=== PATIENT | female | born 1995 | race Caucasian/White ===

== ENCOUNTER → 2020-07-26 08:54 | Outpatient (BNVA) | payer BC, SELFPAY | PROVIDERS: PCP Nurse Practitioner Family; Visit Provider Surgery | DX: Z76.89 Persons encountering health services in other specified circumstances (principal) ==

== ENCOUNTER → 2020-08-10 08:14 | Outpatient (BNVA) | payer BC, SELFPAY | PROVIDERS: PCP Nurse Practitioner Family; Visit Provider Surgery | DX: Z76.89 Persons encountering health services in other specified circumstances (principal) ==

== ENCOUNTER → 2020-08-25 08:11 | Outpatient (BNVA) | payer BC, SELFPAY | PROVIDERS: PCP Nurse Practitioner Family; Visit Provider Dietitian, Registered ==

== ENCOUNTER 2023-06-11 08:24 | Emergency (ER) | payer OTHER, SELFPAY ==
--- NOTE | ~2023-06-11 | XR_ITS ---
EXAMINATION: XR ANKLE, RIGHT XR FOOT, RIGHT CLINICAL INFORMATION: Status post fall. COMPARISON: None. TECHNIQUE: AP and oblique views of the right ankle were obtained. AP, lateral and oblique views of the right foot were obtained. FINDINGS: No displaced fracture or malalignment. Ankle mortise is symmetric. Bone mineralization is normal. Joint spaces are preserved. No evidence of talar osteochondral lesion. No ankle joint effusion. XR/XR foot RT 2V IMPRESSION: No acute abnormality.
--- NOTE | ~2023-06-11 | XR_ITS ---
EXAMINATION: XR ANKLE, RIGHT XR FOOT, RIGHT CLINICAL INFORMATION: Status post fall. COMPARISON: None. TECHNIQUE: AP and oblique views of the right ankle were obtained. AP, lateral and oblique views of the right foot were obtained. FINDINGS: No displaced fracture or malalignment. Ankle mortise is symmetric. Bone mineralization is normal. Joint spaces are preserved. No evidence of talar osteochondral lesion. No ankle joint effusion. XR/XR ankle RT 2V IMPRESSION: No acute abnormality.
[2023-06-11 08:34] VITALS: BP 127/73; PULSE 84; RESP 18; TEMP 36; O2SAT 96; BMI 44.3
--- NOTE | 2023-06-11 08:48 | PC.NURSE ---
pt currently in xray.
[2023-06-11 09:03] VITALS: BP 132/57; PULSE 76; RESP 16; TEMP 36.7; O2SAT 98
--- NOTE | 2023-06-11 09:05 | PC.NURSE ---
vss and up to date. pt comes in today d/t fall this am. pt was coming out of house, went down one step/tripped/fell down 5 steps. pt denies feeling lightheaded/dizzy prior to fall. pt denies numbness/tingling - just 7/10 pain in right ankle/foot. cms intact. peripheral pulses palpable. pt awaiting for provider assessment/xray results.
--- NOTE | 2023-06-11 09:08 | ED_ITS ---
HPI - Extremity Injury (Lower) General Chief Complaint: Extremity Injury, Lower Stated Complaint: fall 06/10, R ankle injury Time Seen by Provider: 06/11/23 09:08 Source: patient, RN notes reviewed and old records reviewed Mode of arrival: ambulatory History of Present Illness HPI Narrative: 27 yo F w/PMHx depression, anxiety, IBS presenting to the ED c/o R ankle and foot pain s/p twisting injury after slipping down 3-4 stairs this morning when leaving her house. Denies sx prior to fall, denies head trauma or LOC, or injury to other area. Was minimally ambulatory after incident, with pain. Denies weakness, numbness MD complaint: ankle injury and foot injury Related Data Home Medications Medication Instructions Recorded Confirmed cholecalciferol (vitamin D3) 50 50 mcg PO DAILY 07/26/20 07/26/20 mcg (2,000 unit) capsule cranberry-vit cap PO 07/26/20 07/26/20 C-B.coag-FOS-L.acid-L.rham 250 mg-30 mg-39.5 mg capsule (Probiotic Plus and Cranberry) fluticasone propionate 50 1 spray intranasal DAILY 07/26/20 07/26/20 mcg/actuation nasal spray,suspension hyoscyamine sulfate 0.375 mg 0.375 mg PO BID 07/26/20 07/26/20 tablet,extended release,12 hr levonorgestrel 0.15 mg-ethinyl PO 07/26/20 07/26/20 estradiol 30 mcg tablets,3 mos pack(91) multivitamin 1 tab PO DAILY 07/26/20 07/26/20 Allergies Allergy/AdvReac Type Severity Reaction Status Date / Time No Known Allergies Allergy Verified 07/26/20 09:58 Review of Systems Review of Systems: Constitutional: No Weight loss, No Fever, No Chills ENT/Mouth: No Ear Pain, No Nasal Congestion, No sore throat, No Rhinorrhea, No Swallowing Difficulty Cardiovascular: No Chest Pain, No SOB Respiratory: No Cough, No Sputum, No Wheezing Gastrointestinal: No Nausea, No Vomiting, No Diarrhea, No Constipation, No Abdominal pain Genitourinary: No Dysuria, No Urinary Frequency Musculoskeletal: + joint pain, No Myalgias, + Joint Swelling Skin: No Skin Lesions, No rash Neuro: No Weakness, No Numbness, No Paresthesias, No head trauma, No LOC Yes all other systems are reviewed and are negative Constitutional: Constitutional: Reports as per [facility] Past Medical History Attestation statement: The following information was validated with the patient. Source: old records reviewed Medical History IBS (irritable bowel syndrome) Depression Anxiety Surgical History History of dental surgery Hx of cholecystectomy Hx of wisdom tooth extraction Hx of tonsillectomy Family History Family History Father Prostate cancer Asthma Mother Hyperthyroidism Abnormal cells in breast Abnormal cells of cervix Brother No problems noted. Social History Social History Alcohol intake: current Alcohol intake frequency: holidays/special occasions only Advance Directives: No Advance Directives Information Provided: No Physical Exam Vital Signs: Vital Signs: Last Vital Signs Temp 98.1 F 06/11/23 09:03 Pulse 65 06/11/23 10:03 Resp 16 06/11/23 10:03 BP 119/72 06/11/23 10:03 Pulse Ox 100 06/11/23 10:03 O2 Del Method Room Air 06/11/23 10:03 BMI result Body Mass Index 44.3 Const: General: cooperative, healthy appearing and no acute distress Orientation/consciousness: patient oriented x3 Limitations: no limitations HEENT: Head: Yes normal to inspection, Yes atraumatic, No Romero's sign and No raccoon eyes Ears: hearing grossly normal bilaterally General nose exam: Normal external nose present Face and sinus: Yes normal facial exam Eyes: General: appearance normal, both eyes and all related structures EOM: EOMs intact bilaterally Neck: Neck: Yes normal visual inspection and Yes no meningeal signs Resp: Effort & Inspection: normal respiratory effort and no respiratory distress Cardio: Rate: regular rate Heart sounds: S1 normal heart sound present and S2 normal heart sound present Peripheral pulses: dorsalis pedis present Skin: Rashes: no rashes Wounds: no wounds Neuro: General: patient oriented x3, tone normal and no meningeal signs Cranial nerves: Yes CN's II-XII intact bilaterally Extrem: Other: right ankle and foot with mild swelling and +ttp > medical aspect. No deformity. No erythema or crepitus. NV intact Course Course Course Narrative: XR foot RT 2V/XR ankle RT 2V IMPRESSION: No acute abnormality. > KAT wrap and aircast applied Results discussed with patient including worrisome signs and symptoms and strict return precautions, and when to return to the emergency department. They verbalized understanding and feel safe for discharge at this time. Medical Decision Making Medical Decision Making MDM Narrative: 27 yo F w/PMHx depression, anxiety, IBS presenting to the ED c/o R ankle and foot pain s/p twisting injury after slipping down 3-4 stairs this morning when leaving her house. On exam VSS, NAD, nontoxic appearing, PE as above. Concern for ankle or foot fracture vs sprain. Low suspicion for Achilles tendon injury, septic joint/arthritis or ICH Plan: XRs Please refer to course for remaining clinical decision making, interpretation of labs/imaging results, and discussions with consultants and/or family members. Differential Diagnosis Differential Diagnoses: The differential diagnosis associated with the pr esentation includes As above Admission/Observation Consideration of admission/observation: Escalation of care including admissi on/observation considered Radiology Impression Discussion of test interpretation with radiology: I have reviewed the radiologist's reading. External Record Review External record reviewed: Inpatient record, Office record, Outpatient record, Prior outpatient labs, Prior outpatient radiology, Primary care record and Outside ED record Tests considered The following testing was considered but not selected: As above Discharge Plan Discharge Clinical Impression: Ankle sprain, Foot sprain Patient Disposition: Home, Self-Care Instructions: Ankle Sprain (DC), Foot Sprain (ED) Additional Instructions: you sprained your ankle and foot wear air cast and use KAT wrap as needed ice elevated take tylenol and motrin as needed if symptoms persist or worsen return to the ED Prescriptions: No Action levonorgestrel-ethinyl estrad 0.15 mg-30 mcg (91) tablets,dose pack,3 month PO hyoscyamine sulfate 0.375 mg tablet extended release 12 hr 0.375 mg PO BID multivitamin Tablet 1 tab PO DAILY fluticasone propionate 50 mcg/actuation spray,suspension 1 spray intranasal DAILY Rx Instructions: administer into each nostril Probiotic Plus and Cranberry 250-30-39.5 mg capsule PO cholecalciferol (vitamin D3) 50 mcg (2,000 unit) capsule 50 mcg PO DAILY Referrals: Anisha Vu FNP [Primary Care Provider] - 3 days Stand Alone Forms: Work/School Release Interventions: ED Discharge Assessment Last Done: 06/11/23 10:31 Discharge Date/Time: 06/11/23 10:32
[2023-06-11 10:03] VITALS: BP 119/72; PULSE 65; RESP 16; O2SAT 100
--- NOTE | 2023-06-11 10:14 | PC.NURSE ---
tech applying terrence bandage/air cast at this time.
== END 2023-06-11 10:32 | disposition home or self-care (01) ==
PROVIDERS: Emergency Provider Emergency Medicine; PCP Nurse Practitioner Family
DX: S93.401A Sprain of unspecified ligament of right ankle, initial encounter (principal); S93.601A Unspecified sprain of right foot, initial encounter; W01.0XXA Fall on same level from slipping, tripping and stumbling without subsequent striking against object, initial encounter; Y93.9 Activity, unspecified; Y92.9 Unspecified place or not applicable; Y99.9 Unspecified external cause status; Z79.899 Other long term (current) drug therapy
CPT/HCPCS: 73600; 73620; 99283; 99284

== ENCOUNTER 2023-10-11 11:11 | Emergency (ER) | payer OTHER, SELFPAY ==
--- NOTE | ~2023-10-11 | XR_ITS ---
EXAMINATION: XR CHEST CLINICAL INFORMATION: Chest pain COMPARISON: None available. TECHNIQUE: 2 views of the chest were obtained. FINDINGS: No acute infiltrate. The lung hanson are felt to be grossly clear. There is no effusion. No pneumothorax The cardiac silhouette is within normal limits. Prominent left hilar region of uncertain etiology. Scoliosis convex right is noted. XR/XR chest 2V IMPRESSION: No infiltrate or effusion.. Mildly prominent left hilum of uncertain etiology. If further evaluation is warranted consider CT
--- NOTE | 2023-10-11 11:16 | ECG_ITS ---
Test Reason : CP Blood Pressure : / mmHG Vent. Rate : 086 BPM Atrial Rate : 086 BPM P-R Int : 136 ms QRS Dur : 088 ms QT Int : 360 ms P-R-T Axes : 025 046 029 degrees QTc Int : 430 ms Normal sinus rhythm Normal ECG No previous ECGs available Referred By: Generic ED Physician Electronically Signed By:Nick Rojas
[2023-10-11 11:27] VITALS: BP 141/94; PULSE 87; RESP 20; TEMP 36.7; O2SAT 98; BMI 44.0
--- NOTE | 2023-10-11 11:27 | ED.GENADULT ---
HPI - General Adult General Chief complaint: Chest Pain Stated complaint: chest pain sob Time Seen by Provider: 10/11/23 19:54 Source: patient Mode of arrival: ambulatory Limitations: no limitations History of Present Illness HPI narrative: Patient is a 27-year-old female with history of IBS, depression and anxiety presenting to the ED with complaint of chest pain and tightness since Sunday progressively worsening. States it feels similar to prior episodes of anxiety, but has never had these exact symptoms before. Yesterday and today also had vomiting. Complains of intermittent tingling to arms. Chest pain has been constant since it started on Sunday, localized to the mid chest with no radiation, patient thinks that the chest pain is triggering her anxiety, patient is tearful appear very anxious during the exam. No recent travel, no recent prolonged immobilization, no history of PE or DVT. Related Data Home Medications Medication Instructions Recorded Confirmed cholecalciferol (vitamin D3) 50 50 mcg PO DAILY 07/26/20 07/26/20 mcg (2,000 unit) capsule cranberry-vit cap PO 07/26/20 07/26/20 C-B.coag-FOS-L.acid-L.rham 250 mg-30 mg-39.5 mg capsule (Probiotic Plus and Cranberry) fluticasone propionate 50 1 spray intranasal DAILY 07/26/20 07/26/20 mcg/actuation nasal spray,suspension hyoscyamine sulfate 0.375 mg 0.375 mg PO BID 07/26/20 07/26/20 tablet,extended release,12 hr levonorgestrel 0.15 mg-ethinyl PO 07/26/20 07/26/20 estradiol 30 mcg tablets,3 mos pack(91) multivitamin 1 tab PO DAILY 07/26/20 07/26/20 Previous Rx's Medication Instructions Recorded hydroxyzine HCl 25 mg tablet 25 mg PO TID PRN anxiety #20 tabs 10/11/23 Allergies Allergy/AdvReac Type Severity Reaction Status Date / Time No Known Allergies Allergy Verified 07/26/20 09:58 Review of Systems Review of Systems: All other systems are reviewed and are negative Constitutional: Reports as per HPI and Reports no additional constitutional complaints Eyes: Reports as per HPI and Reports no additional eye complaints Reports system reviewed and no additional complaints, except as documented Cardiovascular: Reports as per HPI and Reports no additional cardiovascular complaints Respiratory: Reports as per HPI and Reports no additional respiratory complaints Gastrointestinal: Reports as per HPI and Reports no additional gastrointestinal complaints Genitourinary: Reports no additional female genitourinary complaints Musculoskeletal: Reports no additional musculoskeletal complaints Skin/Breast: Reports system reviewed and no additional complaints, except as docu Psychiatric: Reports no additional psychiatric complaints Endocrine: Reports no additional endocrine complaints Hematologic/Lymphatic: Reports no additional hematologic/lymphatic complaints Allergic/Immunologic: Reports no additional allergic/immunologic complaints Reports system reviewed and no additional complaints, except as documented and Reports Abnormal speech present [facility] Past Medical History Medical History IBS (irritable bowel syndrome) Depression Anxiety Surgical History History of dental surgery Hx of cholecystectomy Hx of wisdom tooth extraction Hx of tonsillectomy Family History Family History Father Prostate cancer Asthma Mother Hyperthyroidism Abnormal cells in breast Abnormal cells of cervix Brother No problems noted. Social History Social History Alcohol intake: current Alcohol intake frequency: holidays/special occasions only Smoked in Last 30 Days: No Use of substances other than those prescribed or required for medical reasons: Yes Substance Use Type: Marijuana Substance Use Type Other:: medical marijuana Advance Directives: No Physical Exam ED Vital Signs: Vital Signs - 24 hr 10/11/23 11:27 10/11/23 17:08 10/11/23 19:51 Temperature 98.1 F 97.2 F 98.6 F Pulse Rate 87 82 84 Respiratory Rate 20 18 28 H Blood Pressure 141/94 H 157/84 H 112/79 Pulse Oximetry 98 95 98 Oxygen Delivery Method Room Air Room Air Room Air BMI result Body Mass Index 44.0 Vital signs have been reviewed and appear to be correct. Blood pressure elevated. Heart rate normal. Respiratory rate elevated, Temperature normal. Oxygen saturation normal. Appearance: Alert. Oriented X3. No acute distress. Head: Normal external exam. Normocephalic. Atraumatic. No Romero signs noted. No raccoon eyes noted Eyes: PERRLA. EOMI. Conjunctiva and sclera normal. Eyelids normal. ENT: TM's Normal. Pharynx normal. Uvula midline. Moist mucous membranes. No trismus noted. No drooling noted. No muffled voice noted. Neck: Normal inspection. Neck supple. FROM. No adenopathy. Thyroid Normal. No meningeal signs. No neck mass noted. CVS: Normal heart rate and rhythm. Heart sound normal. No murmurs noted. Pulses normal throughout. Respiratory: No respiratory distress. Painless inspiration. Breath sounds normal. No wheezes/rales/rhonchi noted. Chest nontender. No accessory muscle usage noted or decreased air movement noted. Abdomen: Soft and nontender. Bowel sounds normal in all 4 quadrants. No distention noted. No organomegaly noted. No visible injury noted. Back: No CVA tenderness. Full range of motion noted. Skin: Skin warm and dry. Normal skin color. Normal skin turgor. No rashes/lesions/lacerations noted. Extremities: No lower extremity edema. Extremities exhibit normal range of motion. Extremities nontender. Neuro: Oriented X 3. Cranial nerve exam: II-XII are grossly intact No motor deficit. No sensory deficit. Reflexes normal. Course Course Course Narrative: This is a rapid medical exam: Additional HPI, ROS, PE not included below will be deferred to primary provider. Patient is a 27-year-old female with history of IBS, depression and anxiety presenting to the ED with complaint of chest pain and tightness since Sunday progressively worsening. States it feels similar to prior episodes of anxiety, but has never had these exact symptoms before. Yesterday and today also had vomiting. Complains of intermittent tingling to arms. Plan: EKG, labs, CXR, viral swabs 17:10 Patient re-evaluated in triage for complaint of ongoing chest tightness, now rates at 6/10, reports feeling anxious. States she does not currently take any medications for her anxiety. She is not on OCPs, no recent travel, nonsmoker, no history of malignancy, no prior history of PE/DVT. Will order hydroxyzine for anxiety. Reevaluation(s) Reevaluation #1: Chest pain, physical exam reveals point of reproducible tenderness likely due to costochondritis, PE ruled out by low risk history and negative D-dimer, ACS also is not favorable diagnosis with negative troponin x3 and normal EKG. Patient's symptoms is due to anxiety will prescribe hydroxyzine and instructed patient to follow-up with PCP. Time: 21:14 Medications Administered Discontinued Medications Generic Name Dose Route Start Last Admin Trade Name Sunny PRN Reason Stop Dose Admin Acetaminophen 650 mg 10/11/23 20:05 10/11/23 20:14 Acetaminophen 325 Mg Tablet PO 10/11/23 20:06 650 mg ONCE ONE Administration Hydroxyzine HCl 25 mg 10/11/23 17:09 10/11/23 17:12 Hydroxyzine Hcl 25 Mg Tablet PO 10/11/23 17:10 25 mg ONCE ONE Administration Lorazepam 1 mg 10/11/23 20:05 10/11/23 20:14 Lorazepam 1 Mg Tablet PO 10/11/23 20:06 1 mg ONCE ONE Administration Medical Decision Making Differential Diagnosis Differential Diagnoses: The differential diagnosis associated with the presentation includes (ACS, pulmonary embolism, costochondritis, pneumonia, pleural effusion, pneumothorax, electrolyte derangement, severe anemia, viral upper respiratory infection.) Admission/Observation Consideration of admission/observation: Escalation of care including admission/observation considered Lab Data MDM Lab Attestation statement: I reviewed the patient's lab results. 10/11/23 11:56 10/11/23 11:56 Labs: Lab Results 10/11/23 10/11/23 10/11/23 Range/Units 11:56 19:57 20:15 WBC 12.7 H (4.8-10.8) X10*3/uL RBC 4.71 (4.20-5.50) X10*6/uL Hgb 14.3 (12.0-16.0) g/dl Hct 42.4 (37.0-47.0) % MCV 90.0 (80.0-98.0) fL MCH 30.4 (27.0-33.0) pg MCHC 33.7 (31.0-35.0) g/dl RDW 11.5 (11.0-16.0) % Plt Count 317 (160-400) X10*3/uL MPV 9.6 (9.4-12.3) fL Immature Gran % (Auto) 0.5 H (0.0-0.4) % Neut % (Auto) 69.4 (45-73) % Lymph % (Auto) 23.4 (20-40) % [place] % (Auto) 5.8 (2-11) % Eos % (Auto) 0.6 (0-4) % Baso % (Auto) 0.3 (0-2) % Lymph # (Auto) 3.0 (1.2-4.9) X10*3/uL [place] # (Auto) 0.7 (0.1-1.2) X10*3/uL Eos # (Auto) 0.1 (0.0-0.4) X10*3/uL Baso # (Auto) 0.0 (0.0-0.2) X10*3/uL Abs Immat Gran (auto) 0.06 H (0.00-0.03) X10*3/uL Absolute Neuts (auto) 8.8 H (2.0-8.3) x10*3/uL Absolute Nucleated RBC 0.000 (0.0-0.012) X10*3/uL Nucleated RBC % (auto) 0.0 (0.0-0.2) /100WBC D-Dimer High Sensitivty < 150 NG/ML Sodium 140 (135-145) mmol/L Potassium 4.1 (3.3-5.1) mmol/L Chloride 105 (96-108) mmol/L Carbon Dioxide 27 (22-29) mmol/L Anion Gap 12 (12-20) BUN 9 (9-16) mg/dL Creatinine 0.68 (0.5-1.4) mg/dL Estim Creat Clear Calc 150.2 Estimated GFR > 60 Random Glucose 94 (60-115) mg/dL Calcium 9.4 (8.4-10.2) mg/dL Total Bilirubin 0.5 (0.0-1.0) mg/dL AST 17 (5-31) U/L ALT 19 (0-31) U/L Alkaline Phosphatase 83 (39-117) U/L Troponin I High Sens < 2.7 < 2.7 < 2.7 (<3.5-17.0) ng/L Total Protein 7.2 (6.5-8.0) g/dL Albumin 4.4 (3.5-5.0) g/dL Beta HCG, Quant < 2 mIU/mL Influenza Type A (PCR) NEGATIVE (Negative) Influenza Type B (PCR) NEGATIVE (Negative) RSV RNA Qual (PCR) NEGATIVE (Negative) SARS-CoV-2 RNA (RT-PCR) NEGATIVE (Negative) Independent Interpretation I performed an independent interpretation of an: Plain X-Ray (Chest:No infiltrate or effusion.. Mildly prominent left hilum of uncertain etiology. If further evaluation is warranted consider CT) Radiology Impression Discussion of test interpretation with radiology: I have reviewed the radiologist's reading. Discharge Plan Discharge Clinical Impression: Costochondritis Patient Disposition: Home, Self-Care Instructions: Costochondritis (ED) Prescriptions: New hydroxyzine HCl 25 mg tablet 25 mg PO TID PRN (Reason: anxiety) Qty: 20 0RF No Action levonorgestrel-ethinyl estrad 0.15 mg-30 mcg (91) tablets,dose pack,3 month PO hyoscyamine sulfate 0.375 mg tablet extended release 12 hr 0.375 mg PO BID multivitamin Tablet 1 tab PO DAILY fluticasone propionate 50 mcg/actuation spray,suspension 1 spray intranasal DAILY Rx Instructions: administer into each nostril Probiotic Plus and Cranberry 250-30-39.5 mg capsule PO cholecalciferol (vitamin D3) 50 mcg (2,000 unit) capsule 50 mcg PO DAILY Referrals: Anisha Vu, MUSIC ASSISTANT [Primary Care Provider] -
[2023-10-11 12:01] LABS: MANUAL DIFF FLAG NO
[2023-10-11 12:03] LABS: Basophils Percent Auto 0.3 % (0-2); Eosinophils Absolute Auto 0.1 X10*3/uL (0.0-0.4); Eosinophils Percent Auto 0.6 % (0-4); Hematocrit 42.4 % (37.0-47.0); Hemoglobin 14.3 g/dl (12.0-16.0); Imm Gran Abs Auto 0.06 X10*3/uL (0.00-0.03); Imm Gran Pct Auto 0.5 % (0.0-0.4); Lymphocytes Percent Auto 23.4 % (20-40); Mean Corpuscular HGB Conc 33.7 g/dl (31.0-35.0); Mean Corpuscular Hemoglobin 30.4 pg (27.0-33.0); Mean Platelet Volume 9.6 fL (9.4-12.3); Monocytes Absolute Auto 0.7 X10*3/uL (0.1-1.2); Monocytes Percent Auto 5.8 % (2-11); Neutrophils Absolute Auto 8.8 x10*3/uL (2.0-8.3); Neutrophils Percent Auto 69.4 % (45-73); Platelet Count 317 X10*3/uL (160-400); Red Blood Count 4.71 X10*6/uL (4.20-5.50); Red Cell Distribution Width 11.5 % (11.0-16.0); White Blood Count 12.7 X10*3/uL (4.8-10.8)
[2023-10-11 12:32] LABS: Alanine Aminotransferase 19 U/L (0-31); Albumin Level 4.4 g/dL (3.5-5.0); Alkaline Phosphatase 83 U/L (39-117); Anion Gap 12 (12-20); Aspartate Amino Transferase 17 U/L (5-31); Bilirubin Total 0.5 mg/dL (0.0-1.0); Blood Urea Nitrogen 9 mg/dL (9-16); Calcium 9.4 mg/dL (8.4-10.2); Carbon Dioxide 27 mmol/L (22-29); Chloride 105 mmol/L (96-108); Creatinine Clr Calc Pharmacy 150.2; Estimated Glomerular Filt Rate > 60; Glucose Random 94 mg/dL (60-115); HCG Quantitative < 2 mIU/mL; Potassium 4.1 mmol/L (3.3-5.1); Sodium 140 mmol/L (135-145); Total Protein 7.2 g/dL (6.5-8.0); Troponin-I High Sensitivity < 2.7 ng/L (<3.5-17.0)
[2023-10-11 12:47] LABS: Influenza A PCR NEGATIVE (Negative); Influenza B PCR NEGATIVE (Negative); Resp Syncy Virus RNA Qual PCR NEGATIVE (Negative); SARS COV2 PCR INHOUSE NEGATIVE (Negative)
[2023-10-11 17:08] VITALS: BP 157/84; PULSE 82; RESP 18; TEMP 36.2; O2SAT 95
[2023-10-11] MEDS: hydrOXYzine HCL 25 MG TABLET PO (17:12)
[2023-10-11 19:51] VITALS: BP 112/79; PULSE 84; RESP 28; TEMP 37; O2SAT 98
[2023-10-11] MEDS: LORazepam 1 MG TABLET PO (20:14)
[2023-10-11] MEDS: Acetaminophen 325 MG TABLET 650 MG PO (20:14)
[2023-10-11 20:25] LABS: Troponin-I High Sensitivity < 2.7 ng/L (<3.5-17.0)
[2023-10-11 20:28] LABS: D Dimer High Sensitivity < 150 NG/ML
[2023-10-11 20:40] LABS: Troponin-I High Sensitivity < 2.7 ng/L (<3.5-17.0)
== END 2023-10-11 21:54 | disposition home or self-care (01) ==
PROVIDERS: Registered Nurse Emergency; Emergency Provider Emergency Medicine; PCP Nurse Practitioner Family
DX: M94.0 Chondrocostal junction syndrome [Tietze] (principal); F41.9 Anxiety disorder, unspecified; R07.89 Other chest pain; Z79.899 Other long term (current) drug therapy; Z11.52 Encounter for screening for COVID-19; Z20.822 Contact with and (suspected) exposure to COVID-19
CPT/HCPCS: 0241U; 36415; 71046; 80053; 84484; 84702; 85025; 85379; 93005; 99283; 99285

== ENCOUNTER → 2023-10-11 11:16 | Outpatient (BNV) | payer OTHER, SELFPAY | PROVIDERS: PCP Nurse Practitioner Family; Visit Provider Internal Medicine Cardiovascular Disease | DX: R07.9 Chest pain, unspecified (principal) | CPT/HCPCS: 93010 ==

== ENCOUNTER 2024-06-20 15:13 | Outpatient (AMB) | payer OTHER, SELFPAY ==
--- NOTE | 2024-06-20 15:15 | MHC.OFFVIS ---
Vital Signs 06/20/24 15:16 Height 5 ft 3 in Weight 220 lb 7.396 oz BMI 39.0 BP 134/60 Blood Pressure Location Lt brachial Position Sitting Pulse 79 Intake Visit Reasons: Gerd, Ibs, hyperlipidemia Intake Note: Sharee presents in the office as a new patent for GERD, IBS, and Hyperlipidemia. CC: She states that she has acid reflux and IBS. Constipation and diarrhea mixed with nausea and vomiting. No blood when she has a BM. Pains in the epigasrtic region and sometimes it is lower but usually no the left side. Allergies No Known Allergies Allergy (Verified 06/20/24 15:21) HPI Comments Details: 28 y.o F who is here to establish care for IBS and GERD. Reports had CCY in 2015 following which she started having abd pain and diarrhea and was then diagnosed with IBS. Was started on hyosciamine which worked well for her for a few years. However earlier this year she lost her insurance and was not able to take this med for almost half a year which restarted these sx. However now the new insurance does not cover it so had to switch to Dicyclomine. Despite this continues to have sx and feels that effect only lasts for 1-2 hours. Has epigastric and L sided abd pain with nausea and diarrhea. 5 BMs per day. Has not had a formed BM since CCY. Pt also becomes nauseous within 1-2 hours of eating shalonda when the food is rich in tomatoes or onions or fibrous vegetables. When she does throw up can still see pieces of solid food even if throws up the next day. Also on pepcid 40 BID for left sided pain and possible gastritis. Reports EGD in 2020 was normal. (Dr Oliva) [facility] Medical History IBS (irritable bowel syndrome) Depression Anxiety Surgical History Hx of colonoscopy History of esophagogastroduodenoscopy (EGD) History of dental surgery Hx of cholecystectomy Hx of wisdom tooth extraction Hx of tonsillectomy Family History Father Prostate cancer Asthma Mother Hyperthyroidism Abnormal cells in breast Abnormal cells of cervix Brother No problems noted. Social History Alcohol intake: current Alcohol intake frequency: holidays/special occasions only Substance Use Type: Marijuana Review of Systems Const All systems reviewed & are unremarkable except as noted in HPI and below Physical Exam Vital Signs: Last Vital Signs Pulse 79 06/20/24 15:16 BP 134/60 06/20/24 15:16 BMI result Body Mass Index 39.0 No apparent distress Nonicteric Abdomen soft, nondistended Alert and oriented x3, normal gait Assessment & Plan Assessment & Plan (1) Vomiting: Code(s): R11.10 - Vomiting, unspecified Category: Medical (2) Abdominal pain: Code(s): R10.9 - Unspecified abdominal pain Category: Medical (3) Bloating: Code(s): R14.0 - Abdominal distension (gaseous) Category: Medical Plan Ddx include PUD, IBD, malabsorption, SIBO, delayed gastric emptying, dysmotility, DGBI. Plan: - Labs as below - GES - Barium swallow with UGIS - Has had good response to hyosciamine in past so will attempt to refill. Pt advised to call office if has high OOP to see if we can appeal and/or apply for assistance - Pt requests PFMLA through our office but educated this is the first visit and we are working her up for what the underlying diagnosis is, and therefore not able to fill out at this time Follow up 2 months Orders: Orders Complete Blood Count no Diff Today R10.9 - Unspecified abdominal pain, R11.10 - Vomiting, unspecified, R14.0 - Abdominal distension (gaseous) Transglutaminase IgA Today R10.9 - Unspecified abdominal pain, R11.10 - Vomiting, unspecified, R14.0 - Abdominal distension (gaseous) Immunoglobulin A Today R10.9 - Unspecified abdominal pain, R11.10 - Vomiting, unspecified, R14.0 - Abdominal distension (gaseous) Hepatitis A IgG Today R10.9 - Unspecified abdominal pain, R11.10 - Vomiting, unspecified, R14.0 - Abdominal distension (gaseous) Hepatitis B Core Antibody Today R10.9 - Unspecified abdominal pain, R11.10 - Vomiting, unspecified, R14.0 - Abdominal distension (gaseous) Hepatitis B Surface Antibody Today R10.9 - Unspecified abdominal pain, R11.10 - Vomiting, unspecified, R14.0 - Abdominal distension (gaseous) Hepatitis B Surface Antigen Today R10.9 - Unspecified abdominal pain, R11.10 - Vomiting, unspecified, R14.0 - Abdominal distension (gaseous) Calprotectin, Fecal Today R10.9 - Unspecified abdominal pain, R11.10 - Vomiting, unspecified, R14.0 - Abdominal distension (gaseous) C Reactive Protein Today R10.9 - Unspecified abdominal pain, R11.10 - Vomiting, unspecified, R14.0 - Abdominal distension (gaseous) Prothrombin Time INR Today R10.9 - Unspecified abdominal pain, R11.10 - Vomiting, unspecified, R14.0 - Abdominal distension (gaseous) FL upper GI w Ba Swallow Today R10.9 - Unspecified abdominal pain, R11.10 - Vomiting, unspecified NM gastric emptying study Today R10.9 - Unspecified abdominal pain, R11.10 - Vomiting, unspecified Comprehensive Met. Panel Today R10.9 - Unspecified abdominal pain, R11.10 - Vomiting, unspecified, R14.0 - Abdominal distension (gaseous) IRON PROFILE Today R10.9 - Unspecified abdominal pain, R11.10 - Vomiting, unspecified, R14.0 - Abdominal distension (gaseous) Hepatitis C Antibody Today R10.9 - Unspecified abdominal pain, R11.10 - Vomiting, unspecified, R14.0 - Abdominal distension (gaseous) HIV Ab/Ag Today R10.9 - Unspecified abdominal pain, R11.10 - Vomiting, unspecified, R14.0 - Abdominal distension (gaseous) Medications: New omeprazole 20 mg PO DAILY 90 caps 1RF hyoscyamine sulfate 0.125 mg PO BID-QID PRN 60 tabs 1RF dyspepsia Coding Level of Care Code New Pt Level 5 (44513) Complex EM visit Add On G2211 Diagnoses Vomiting R11.10 Abdominal pain R10.9 Bloating R14.0
[2024-06-20 15:16] VITALS: BP 134/60; PULSE 79; BMI 39.0
== END 2024-06-23 09:01 | disposition home or self-care (01) ==
PROVIDERS: PCP Nurse Practitioner Family; Visit Provider Internal Medicine
DX: R11.10 Vomiting, unspecified (principal); R10.9 Unspecified abdominal pain; R14.0 Abdominal distension (gaseous)
CPT/HCPCS: 99204; G2211

== ENCOUNTER → 2024-06-20 15:13 | Outpatient (BNVA) | payer SELFPAY | PROVIDERS: PCP Nurse Practitioner Family; Visit Provider Internal Medicine ==

== ENCOUNTER → 2024-08-12 09:40 | Outpatient (REF) | payer OTHER, SELFPAY ==
--- NOTE | ~2024-08-12 | NM_ITS ---
EXAMINATION: MI RADIONUCLIDE SOLID FOOD GASTRIC EMPTYING 4-HOUR STUDY CLINICAL INFORMATION: Vomiting, nausea and abdominal pain. The cystectomy 2016. COMPARISON: None TECHNIQUE: A standard meal consisting of 4 oz of Egg Beaters brand tagged with 0.949 microcuries Tc-99m Sulfur Colloid, 8 oz water and 2 slices of toast with jelly was administered orally to the patient. Images were obtained using a dual head gamma camera in the anterior and posterior projections over of the stomach immediately post ingestion and at hourly intervals up to 4 hours post ingestion. The anterior and posterior counts at each time interval were averaged using the geometric mean and expressed as percentage of the immediate post ingestion counts. FINDINGS: There is good visualization of activity in the stomach immediately post ingestion. As the study progresses, there is good clearance of activity from the stomach and visualization of progressively increasing small bowel activity. By the end of the study, there is almost no retention noted in the stomach. Retention in the stomach at each time interval was: 1 hour 78%% (normal 37%-90%) 2 hours 46% (normal 30%-60%) 3 hours 24% 4 hours 16% (normal 0%-10%) MI/MI gastric emptying study IMPRESSION: Abnormal 4-hour solid food gastric emptying study. For solid meal, rapid gastric emptying is less than 30% at 60 minutes. Delayed gastric emptying criteria is more than 60% remaining at 120 minutes or more than 10% at 240 minutes. The 4-hour value is the best discriminator of a normal or abnormal result). Gastric emptying study grading per JNMT Consensus Recommendations in 2008 (https://tech.snmjournals.org/content/36/1/44) Grade 1 (mild retention): 11-20% at 4h Grade 2 (moderate retention): 21-35% at 4h Grade 3 (severe retention): 36-50% at 4h Grade 4 (very severe retention): >50% retention at 4h Electronically signed by: Shravan Antony MD 08/12/2024 03:51 PM [facility]
== END ==
LOC: HO.NUCMED 09:40
PROVIDERS: PCP Nurse Practitioner Family; Visit Provider Internal Medicine
DX: R10.9 Unspecified abdominal pain (principal); R11.10 Vomiting, unspecified
CPT/HCPCS: 78264; A9541

== ENCOUNTER → 2024-08-12 09:41 | Outpatient (BNV) | payer OTHER, SELFPAY | PROVIDERS: PCP Nurse Practitioner Family; Visit Provider Radiology Diagnostic Radiology | DX: R10.9 Unspecified abdominal pain (principal); R11.10 Vomiting, unspecified | CPT/HCPCS: 78264 ==

== ENCOUNTER 2024-09-10 09:03 | Outpatient (REF) | payer OTHER, SELFPAY ==
--- NOTE | ~2024-09-10 | FL_ITS ---
EXAMINATION: XR FLUOROSCOPY UPPER GI WITH AIR CLINICAL INFORMATION: Abdominal pain COMPARISON: None TECHNIQUE: Fluoroscopic air contrast upper GI examination was performed utilizing standard techniques with thin and thick barium and effervescent granules. Numerous spot images were obtained. FINDINGS: Dual and single contrast images of the esophagus demonstrate normal caliber, contour, and mucosal pattern. No evidence of stricture, mass, or ulcerations identified. Esophageal peristalsis was normal. Surgical clips are present in the right upper quadrant, consistent with prior history of cholecystectomy. No evidence of hiatus hernia identified. Mild gastroesophageal reflux is seen in the distal esophagus. Dual contrast and single contrast images of the stomach demonstrated normal contour and mucosal pattern without evidence of mass, ulceration, or other abnormality. Contrast freely passed into the gastric antrum and duodenal bulb without delay. Single and air-contrast images of the duodenal bulb demonstrate no abnormality. The duodenal sweep has a normal appearance, course, and mucosal fold appearance. The imaged proximal jejunum has a normal fold pattern and caliber. FLUOROSCOPY TIME: 3 minutes 18 seconds Number of Spot Images: 7 Number of Cine: 12 DOSE AREA PRODUCT: [id number] uGy-m2 (microgray-meter squared) FL/FL upper GI w Ba Swallow IMPRESSION: 1. Mild gastroesophageal reflux, otherwise, unremarkable upper GI series. 2. Status post cholecystectomy. This procedure was performed by Roberto Carlos Alvarado PA-C, and supervised by Dr. Bernal Electronically signed by: Joni Bernal MD 09/12/2024 05:01 PM [facility] [place]
--- OUTSIDE RECORDS SUMMARY | 2024-09-10 09:27 | XMS_ITS | Data Portability ---
Author Organization [place] - [facility],, CORA KING MD Address [address] [address] Care Team Providers Care Content Strategy Lead Name Role Phone LATONYA VELIZ Primary Care Provider [phone] Assessment No assessment recorded. Plan of Treatment Reminders Order Date Submit Date Provider Last Modified By Organization Details Last Modified Time Details Appointments ANNUAL EXAM 2024 08:00A M Cora King MD Not available Not available Not available Lab urinalys is, dipstick 2020 021 [email or web address] 1 In-Office Order, Internal Use Only DO Not Attach Compendium DO Not Attach Compendium, Do Not Delete/merge, [id number] 06/07/2021 14:11:22 [facility], [facility], [address] [place], [place], [address], 06/08/2021 13:59:49 pap test, thinprep , cervical 2020 021 [email or web address] [facility]opathology Service, [address] [place], [address], 07/05/2021 07:31:44 pregnanc y test, urine 2020 021 [email or web address] 1 In-Office Order, Internal Use Only DO Not Attach Compendium DO Not Attach Compendium, Do Not Delete/merge, [id number] 06/07/2021 14:11:22 prolacti n, serum 2020 021 [facility], [address] [place], [address], 08/09/2021 08:49:40 TSH, serum or plasma 2020 021 [facility], [address] [place], [address], 08/09/2021 08:49:41 beta-HCG , qualitat derrell, serum or plasma 2020 021 [facility], [address] [place], [address], 08/08/2021 09:54:50 estradio l, serum 2020 021 [facility], [address] [place], [address], 08/09/2021 08:49:41 testoste dorian, free + total, serum 2020 [facility]21 [facility], [address], [place], [address], 08/09/2021 08:49:41 lh + FSH, serum 2020 021 [facility], [address], [place], [address], 08/09/2021 08:49:41 chlamydi a sp, culture, unspecif ied specimen 2020 021 [facility], Cytopathology Service, [address] [place] [address], [id number], 06/14/2021 07:23:29 NG DNA, PCR, genital 2020 021 [facility]opathology Service, [address] [place] [address], [id number], 06/14/2021 07:23:29 biopsy, cervical 2021 022 [facility] Cytopathology Service, [address] [place], [address], 09/19/2021 07:24:15 pregnanc y test, urine 2021 022 [email or web address] 1 In-Office Order, Internal Use Only DO Not Attach Compendium DO Not Attach Compendium, Do Not Delete/merge, [id number] 09/12/2021 09:16:06 wet mount, vaginal 2021 022 [email or web address] 1 In-Office Order, Internal Use Only DO Not Attach Compendium DO Not Attach Compendium, Do Not Delete/merge, [id number] 09/12/2021 09:16:06 pap, LB 2021 022 NATALIE [facility], Cytopathology Service, [address] [place], [address], 03/07/2022 11:55:56 pap test, thinprep , cervical 2021 022 [facility], [address] [place], [address], 06/22/2022 07:31:09 chlamydi a sp, culture, unspecif ied specimen 2021 022 [facility], [address] [place], [address], 06/22/2022 07:31:09 NG DNA, PCR, genital 2021 022 [facility], [address] [place], [address], 06/22/2022 07:31:09 pap test, thinprep , cervical 2023 024 [email or web address] [facility], [address] [place], [address], 08/30/2023 07:31:46 chlamydi a sp, culture, unspecif ied specimen 2023 024 [facility], [address] [place], [address], 08/23/2023 07:17:44 NG DNA, PCR, genital 2023 024 [facility], [address] [place], [address], 08/23/2023 07:17:44 Referral None recorded . Procedures colposco py with biopsy and endocerv ical curettag e (PROC) 2021 022 NATALIE In-Office Order, Internal Use Only DO Not Attach Compendium DO Not Attach Compendium, Do Not Delete/merge, [id number] 09/12/2021 09:23:48 Surgeries None recorded . Imaging None recorded . Medication Orders metronid azole 0.75 % (37.5 mg/5 gram) vaginal gel [address] [facility][id number], [address] [place], [address], 03/02/2022 08:27:27 fluconaz ole 150 mg tablet 2021 022 [facility]/Pharmacy #[id number], [address] [place], [address], 08/16/2023 08:11:25 Patient TargetsNo targets recorded. Patient Instructions Encounter Date Encounter Id Patient Instructions Last Modified By Organization Details Last Modified Time 06/07/2021 [id number] urinary tract infection in women information Not available 06/07/2021 14:11:23 learning about healthy weight Not available 06/07/2021 14:11:23 secondary amenorrhea: care instructions Not available 06/07/2021 14:11:23 She is here for annual exam. She had been having severe dysmenorrhea, she was changed to the 3 month OCP pill pack and this resolved her dysmenorrhea. She has IBS and states that she was advised by her GI doctor to stop her OCP as they felt it might be contributing to her GI issues. She stopped the OCP in March, had a withdrawal menses beginning 04/04/21, has not had any menses since then, it is June now She is sexually active, uses condoms. Same partner for 6 months. She would be fine if she were to get . Note from problem visit portion of the visit: We discussed that if she is still producing adequate estrogen, then the lining of the uterus needs to be cleansed on a regular basis to prevent an abundance of tissue that when she finally has a menstrual period may cause severe cramping and heavy bleeding. She understands. Urine HCG is negative here today, She notes dysuria, urine dip is negative, check culture. ' Will check HCG, TSH, FSH, LH, estradiol, testosterone, and prolactin. Once labs are back we can discuss options. the Xulane patch is not recommended for control for those wiht a BMI over 30, and her BMI is 44.5. The Nuvaring, however, is not affected significantly by a person's weight, and so she could use this for control. Theoretically it should not bother her stomach as she feels the OCP gave her gastritis which is now improve off the OCP. We discussed this at length, she will consider once the labs are back. Face to face discussion 15 minutes, separate from the annual exam She appears to be doing well. She is advised to get 1500 mg of calcium daily into her diet and supplements combined. There is a health benefit with adequate vitamin D supplementation to at least 400 units daily, daily aerobic exercise of 30 minutes, and stress reduction. Monthly self breast exam was taught, and stressed, and is advised to call if she discovers any new mass in the breast. There are significant health benefits of becoming and remainig fit, with an optimal BMI. There is a potential reduction in chronic discomfort, diminished risks of hypertension, diabetes, and heart disease with the proper weight management. With a recommended BMI there can be improved mobility as she ages. Strategies to reach and maintain her target weight were discussed in detail. Not available 06/07/2021 14:39:38 09/12/2021 [id number] colposcopy: what to expect at home Not available 09/12/2021 09:16:06 human papillomavirus (HPV): care instructions Not available 09/12/2021 09:16:06 bacterial vaginosis: care instructions Not available 09/12/2021 09:16:06 vaginal yeast infection: care instructions Not available 09/12/2021 09:16:06 She is here for colposcopy after recent pap with LSIL. 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 Pap 12/2020 was negative, pap 06/07/21 had LSIL. Also needs wet aristeo as pap suggested BV. note from 06/2020: She is here for pap with LSIL, for colpo. Clara had LSIL on pap in 2015, colpo removed it and this is the first suggestion of a recurrence. 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 __ She has LSIL back, visually, at the 6 o'clock, await biopsy results. 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 Not available 09/12/2021 09:22:58 03/02/2022 [id number] She is here for repeat pap. Prior pap had LSIL, colpo was negative. Pap taken, discussed possible outcomes depending on results. Await pap results. Not available 03/02/2022 08:41:59 06/15/2022 [id number] learning about healthy weight Not available 06/15/2022 08:55:32 She is here for annual exam, doing well, off the OCP, using condoms, same partner for 18 months, would be ok if she became . Declines rx for PNV. note from 2020: She is here for annual exam. She had been having severe dysmenorrhea, she was changed to the 3 month OCP pill pack and this resolved her dysmenorrhea. She has IBS and states that she was advised by her GI doctor to stop her OCP as they felt it might be contributing to her GI issues. She stopped the OCP in March, had a withdrawal menses beginning 04/04/21, has not had any menses since then, it is June now She is sexually active, uses condoms. Same partner for 6 months. She would be fine if she were to get . She appears to be doing well. Monthly self breast exam was taught, and stressed, and is advised to call if she discovers any new mass in the breast. Not available 06/15/2022 08:55:45 08/16/2023 [id number] learning about healthy weight Not available 08/16/2023 10:43:06 She is here for annual, doing well, does not desire control, would be fine if she were to get , declines PNV, explained that this is helpful but needs to be started prior to conception, and why, she still declines. Same partner fro nearly 3 years. Got a job at [employer] in the [employer] office a year ago, is happy. Note from 2021: She is here for annual exam, doing well, off the OCP, using condoms, same partner for 18 months, would be ok if she became . Declines rx for PNV. _ She appears to be doing well. Monthly self breast exam was taught, and stressed, and is advised to call if she discovers any new mass in the breast. Not available 08/16/2023 08:24:37 Reason for Referral None Reported. Results Created Date Observation Date Name Description Value Unit Range Abnormal Flag Note LastModifiedBy Organization Detail LastModifiedTime 06/07/20 21 06/07/2021 URINE CULTU RE comments [facility] [address] [facility] [place] [address] Medic al [facility] kar silva MD SOUR E: URINE ,SABI N CATCH ; Not Available [facility] [address] [place], [address], 06/08/2021 13:59:48 06/07/20 21 06/08/2021 URINE CULTU RE urine culture [facility] [address] [facility]. [place], [place] [address] Medic al [facility] kar silva MD COLLE CTION TIME: 2020 1:12: 00 PM -04:0 0 URINE CULTU RE No growt h F Not Available [facility] [address] [place], [address], 06/08/2021 13:59:48 06/07/20 21 06/07/2021 GENER AL5CA SE [id number] Chlam ydia: NEGAT DERRELL N. gonor rhoea e: NEGAT DERRELL Compl eted on 06-09 CLINI JAGJIT INFOR MATIO N: Z12.4 , Z11.3 , Z01.4 19 [facility] E: ThinP rep Pap for CT/GC Gross Descr iptio n: ThinP rep Vial Recei mariam. Physi cians CHE N VIVIAN ELAINE/ [phone] Not Available [facility] Cytopathology Service [address] [place], [address], 06/09/2021 14:36:12 06/07/20 21 06/07/2021 PAP1C ASE [id number] ThinP rep Pap, Image d: LOW-G RADE SQUAM OUS INTRA EPITH ELIAL LESIO N (LSIL ) . Shift in viviana sugge stive of bacte rial vagin osis. Note: The Pap test is a scree ivan test with an inher ent false negat derrell rate. Autom ated presc reeni ng of all liqui d based speci mens is perfo rmed by the ThinP rep Imagi ng Melchor mosley s other [place] state d. Kel Campbell r , CT( CP) (Case Mike diana 06 24 2021) Judd Alcaraz M.D. , Patho logis t (Case elect liu botello nikko d 06 27 2021) ADEQU ACY: Satis facto ry Endoc ervic al/tr ansfo rmati on zone compo nent prese nt. SOURC E: ThinP rep Pap HPV IF ASCUS , Cervi jagjit, Image d CLINI JAGJIT INFOR MATIO N: HPV If Diagn osis of ASCUS . LPS 1 neg, z12.4 , z01.4 19, z11.3 Not Available [facility]opathology Service [address] [place], [address], 06/28/2021 11:15:37 06/07/20 21 06/07/2021 urina lysis , dipst ick GLU Negati ve Not Available In-Office Order Internal Use Only DO Not Attach Compendium DO Not Attach Compendium, Do Not Delete/merge, [id number] 06/07/2021 13:43:28 06/07/20 21 06/07/2021 urina lysis , dipst ick JAZZY Negati ve Not Available In-Office Order Internal Use Only DO Not Attach Compendium DO Not Attach Compendium, Do Not Delete/merge, [id number] 06/07/2021 13:43:28 06/07/20 21 06/07/2021 urina lysis , dipst ick KET Trace Not Available In-Office Order Internal Use Only DO Not Attach Compendium DO Not Attach Compendium, Do Not Delete/merge, [id number] 06/07/2021 13:43:28 06/07/20 21 06/07/2021 urina lysis , dipst ick SG 1.030 Not Available In-Office Order Internal Use Only DO Not Attach Compendium DO Not Attach Compendium, Do Not Delete/merge, [id number] 06/07/2021 13:43:28 06/07/20 21 06/07/2021 urina lysis , dipst ick BLO Negati ve Not Available In-Office Order Internal Use Only DO Not Attach Compendium DO Not Attach Compendium, Do Not Delete/merge, 06/07/2021 13:43:28 06/07/20 21 06/07/2021 urina lysis , dipst ick pH 5.0 Not Available In-Office Order Internal Use Only DO Not Attach Compendium DO Not Attach Compendium, Do Not Delete/merge, 06/07/2021 13:43:28 06/07/20 21 06/07/2021 urina lysis , dipst ick PRO Negati ve Not Available In-Office Order Internal Use Only DO Not Attach Compendium DO Not Attach Compendium, Do Not Delete/merge, 06/07/2021 13:43:28 06/07/20 21 06/07/2021 urina lysis , dipst ick URO 0.2 E.U. / dl Not Available In-Office Order Internal Use Only DO Not Attach Compendium DO Not Attach Compendium, Do Not Delete/merge, 06/07/2021 13:43:28 06/07/20 21 06/07/2021 urina lysis , dipst ick NIT negati ve Not Available In-Office Order Internal Use Only DO Not Attach Compendium DO Not Attach Compendium, Do Not Delete/merge, 06/07/2021 13:43:28 06/07/20 21 06/07/2021 urina lysis , dipst ick MINGO Trace Not Available In-Office Order Internal Use Only DO Not Attach Compendium DO Not Attach Compendium, Do Not Delete/merge, 06/07/2021 13:43:28 06/07/20 21 06/07/2021 pregn bam test, urine HCG negati ve Not Available In-Office Order Internal Use Only DO Not Attach Compendium DO Not Attach Compendium, Do Not Delete/merge, 06/07/2021 13:43:53 09/12/19 22 09/12/2021 SURGI CALCA SE surgicalcase CERVI X, BIOPS Y: - MILD CHRON IC CERVI CITIS - NO SQUAM OUS INTRA EPITH ELIAL LESIO N IDENT IFIED ON DEEPE R LEVEL S Yady Frederick M.D. , Patho logis t (Case elect liu botello nikko d 09 15 2021) Pre-O p/Cli nical Diagn osis: LPS-1 021-L MIGUEL Speci men and Site: CERVI X-BIO PSY Gross Descr iptio n: Label ed cerv ical biops y . Recei mariam in forma shandra is a 0.5 cm irreg ular herndon-w keshia rubbe ry tissu e fragm ent which is wrapp ed in paper and submi tted in toto in one casse tte, one piece , multi ple level s on one slide . FREDA Physi cians : CHE ELAINE/ [phone] Not Available [facility] [address] [place], [address], 09/15/2021 17:33:17 09/12/1909/12/2021 wet mount , vagin al Clue Cells positi ve Not Available In-Office Order Internal Use Only DO Not Attach Compendium DO Not Attach Compendium, Do Not Delete/merge, [id number] 09/12/2021 09:14:32 09/12/1909/12/2021 wet mount , vagin al Trichomonas negati ve Not Available In-Office Order Internal Use Only DO Not Attach Compendium DO Not Attach Compendium, Do Not Delete/merge, [id number] 09/12/2021 09:14:32 09/12/1909/12/2021 wet mount , vagin al Hyphae positi ve Not Available In-Office Order Internal Use Only DO Not Attach Compendium DO Not Attach Compendium, Do Not Delete/merge, [id number] 09/12/2021 09:14:32 09/12/19 22 09/12/2021 wet mount , vagin al atrophic epithelium negati ve Not Available In-Office Order Internal Use Only DO Not Attach Compendium DO Not Attach Compendium, Do Not Delete/merge, [id number] 09/12/2021 09:14:32 09/12/19 22 09/12/2021 pregn bam test, urine HCG negati ve Not Available In-Office Order Internal Use Only DO Not Attach Compendium DO Not Attach Compendium, Do Not Delete/merge, [id number] 09/12/2021 09:08:12 03/02/20 22 03/02/2022 PAP1C ASE [id number] ThinP rep Pap, Image d: ATYPI JAGJIT SQUAM OUS CELLS OF UNDET ERMIN ED SIGNI TONY CE (ASCU S) . Malini Larry , CT( CP) (Case Screrory diana 03 04 2022) Judd Alcaraz M.D. , Patho logis t (Case elect liu botello nikko d 03 07 2022) ___ RESUL T OF APTIM A HIGH RISK HPV ASSAY : HIGH RISK HPV: NEGAT DERRELL (sero types 16,18 ,31,3 3,35, 39,45 ,51,5 2,56, 58,59 ,66,6 8) Compl eted on 03-07 ADEQU ACY: Satis facto ry Endoc ervic al/tr ansfo rmati on zone compo nent prese nt. SOURC E: ThinP rep Pap HPV IF Ascus : Refle x 16 and 18, Cervi jagjit, Image d CLINI JAGJIT INFOR MATIO N: HPV If Diagn osis of ASCUS . LPS LSIL, [Z01. 419] Not Available [facility]opathology Service [address] [facility], [place], [address], 03/07/2022 11:55:56 06/15/20 22 06/16/[address]/GC AMPLI FIED PROBE C.trach.amp probe thin prep (neg) NEGAT DERRELL No Chlam ydia Trach omati s RNA detec brigitte in this patie nt's sampl e (REFE RENCE RANGE /NORM AL VALUE : NOT DETEC BRIGITTE) Note: This test uses trans cript ion- media brigitte ampli ficat ion metho d to detec t rRNA from C. Trach omati s Not Available [facility] [address], [place], [address], 06/16/2022 13:52:28 06/15/20 22 06/16/[address]/GC AMPLI FIED PROBE GC amplified probe thin prep (neg) NEGAT DERRELL No Neiss eria Gonor rhoea e RNA detec brigitte in this patie nt's sampl e (REFE RENCE RANGE /NORM AL VALUE : NOT DETEC BRIGITTE) NOTE: This test uses trans cript ion-m ediat ed ampli ficat ion metho d to detec t rRNA from N.Esteban orrho eae. A negat derrell resul t does not precl ude infec tion. In the case of a negat derrell urine resul t, testi ng of an endoc ervic al(fe male) or ureth ral (male ) speci men is recom stanislav d if there is high clini jagjit suspi cion of infec tion. Due to very high sensi tivit y of Nucle ic Acid Ampli ficat ion Test, false posit derrell resul ts may occur . There fore, speci men handl ing is extre miguel impor tant. In patie nts in whom the disea se is unlik estefani, addit ional sampl e for testi ng shoul d be consi dered after an initi al posit derrell resul t. The perfo rmanc e kraig cteri stics of this test have not been evalu ated in child juan pablo. The Aptim a Combo 2 assay is not inten ded for the evalu ation of suspe cted sexua l abuse or for other medic o-leg al indic ation s. The order ing provi daniela shoul d asses s if the patie nt had conse nsual sex witho ut risk of sexua l abuse . [facility] if neede d. Conta ct phone numbe r . Thera peuti c failu re or succe ss canno t be deter mined with the Aptim a Combo 2 assay since nucle ic acid may persi st follo wing appro priat e antim icrob ial thera py. The Cente rs for Disea se Contr ol and Preve ntion ([facility] [place]) recom mends confi rmato ry retes ting using cultu re or a diffe rent nucle ic acid ampli ficat ion test when posit derrell resul ts occur , if indic ated. Not Available [facility] [address] [place], [address], 06/16/2022 13:52:28 06/15/20 22 06/15/2022 [facility] results Patie nt Name: MARCOS DEVINE nt : 1995 (Age: 26) Lab Acces tera #: [id number] Colle ction Date: 06/15 Acces tera Date: 06/16 Sign Out Date: 06/21 Tissu e Sourc e: 1: THINP REP AUTO HIKER PAP TEST, CERVI JAGJIT: Final Diagn osis: NEGAT DERRELL FOR INTRA EPITH ELIAL LESIO N OR MALIG ABBIE . Satis facto ry for evalu ation . Endoc ervic al/tr ansfo rmati on zone ABSEN T. Clini jagjit Histo ry: Date of Last Menst rual Perio d: 05/24 Menst rual Histo ry: not avail able Contr acept derrell Histo ry: not avail able Ancil shawn Testi ng: HPV (ASCU S) Chlam ydia/ GC Case image d by the ThinP rep Imagi ng Syste m with aleena schilling rescr eenishira g or nannette w. Perfo rmed at [facility] ate Refer en[facility] at[facility] depar tment of Cytol ogy, [address] [place] Clini jagjit Histo ry (othe r): Z01.4 19, Z11.3 , LPS 03/02 ASCUS HPV negat derrell, routi ne scree n Phone #: [phone], On-Ca ll Patho logis t: [id number] Not Available [facility] [address], [place], [address], 06/21/2022 14:42:48 08/16/19 24 08/20/[address]/GC AMPLI FIED PROBE C.trach.amp probe thin prep (neg) NEGAT DERRELL No Chlam ydia Trach omati s RNA detec brigitte in this patie nt's sampl e (REFE RENCE RANGE /NORM AL VALUE : NOT DETEC BRIGITTE) Note: This test uses trans cript ion- media brigitte ampli ficat ion metho d to detec t rRNA from C. Trach omati s Not Available [facility] [address], [place], [address], 08/20/2023 14:05:55 08/16/19 24 08/20/[address]/GC AMPLI FIED PROBE GC amplified probe thin prep (neg) NEGAT DERRELL No Neiss eria Gonor rhoea e RNA detec brigitte in this patie nt's sampl e (REFE RENCE RANGE /NORM AL VALUE : NOT DETEC BRIGITTE) NOTE: This test uses trans cript ion-m ediat ed ampli ficat ion metho d to detec t rRNA from N.Esteban orrho eae. A negat derrell resul t does not precl ude infec tion. In the case of a negat derrell urine resul t, testi ng of an endoc ervic al(fe male) or ureth ral (male ) speci men is recom stanislav d if there is high clini jagjit suspi cion of infec tion. Due to very high sensi tivit y of Nucle ic Acid Ampli ficat ion Test, false posit derrell resul ts may occur . There fore, speci men handl ing is extre miguel impor tant. In patie nts in whom the disea se is unlik estefani, addit ional sampl e for testi ng shoul d be consi dered after an initi al posit derrell resul t. The perfo rmanc e kraig cteri stics of this test have not been evalu ated in child juan pablo. The Aptim a Combo 2 assay is not inten ded for the evalu ation of suspe cted sexua l abuse or for other medic o-leg al indic ation s. The order ing provi daniela shoul d asses s if the patie nt had conse nsual sex witho ut risk of sexua l abuse . Consu lt the [facility] r if neede d. Conta ct phone robert baldwin . Thera peuti c failu re or succe ss canno t be deter mined with the Aptim a Combo 2 assay since nucle ic acid may persi st follo wing appro priat e antim icrob ial thera py. The Cente rs for Disea se Contr ol and Preve ntion ([facility] [place]) recom mends confi rmato ry retes ting using cultu re or a diffe rent nucle ic acid ampli ficat ion test when posit derrell resul ts occur , if indic ated. Not Available [facility] [address], [place], [address], 08/20/2023 14:05:55 08/16/19 24 08/16/2023 [facility] results Patie nt Name: MARCOS DEVINE nt : 1995 (Age: 27) Lab Acces tera #: [id number] Colle ction Date: 2023 Acces tera Date: 2023 Sign Out Date: 2023 Tissu e Sourc e: 1: THINP REP AUTO HIKER PAP TEST, CERVI JAGJIT: Final Diagn osis: NEGAT DERRELL FOR INTRA EPITH ELIAL LESIO N OR MALIG ABBIE . Satis facto ry for evalu ation . Endoc ervic al/tr ansfo rmati on zone prese nt. Clini jagjit Histo ry: Date of Last Menst rual Perio d: 08/05 Menst rual Histo ry: not avail able Contr acept derrell Histo ry: not avail able Ancil shawn Testi ng: HPV (ASCU S) Chlam ydia/ GC Case image d by the ThinP rep Imagi ng Syste m with aleena schilling rescr jose g or nannette w. Perfo rmed at [facility] ate Refer ence Labor atory depar tment of Cytol ogy, [address] [place] Clini jagjit Histo ry (othe r): Z01.4 19, Z11.3 , ROUTI NE SCREE N, LPS 06/15 NEG Phone #: [phone], On-Ca ll Patho logis t: [id number] Not Available [facility] [address], [place], [address], 08/23/2023 16:08:47 Result Notes None recorded. Problems Name Problem SNOMED Code Status Onset Date Resolution Date Notes Provider Name and Address Organization Details Recorded Time Anxiety [id number] Active advised to see Dr. Robert King MD [address], [place] [place], 5, [place] - Associates in [facility], 6 10:47:36 Cytologic finding [id number] Active Cora King MD [address], [place], 5, [place] - Associates in [facility], 6 10:47:36 Dysfunctio nal uterine bleeding Active Cora King MD [address], [place], 5, [place] - Associates in [facility], 6 10:52:28 Diarrhea 83281822 Active Cora King MD [address] [facility],[address], [place], 5, [place] - Associates in [facility], 6 10:52:28 Dizziness 202612193 Active Cora King MD [address] [facility],[address], [place], 5, [place] - Associates in [facility], 6 10:52:28 Dysmenorrh ea 503613243 Active 2016 She had dysmenorrh ea even with the cyclic OCP and so her old civil litigation attorney had put her on taking it for four packs without placebo straight then having one menses every 12 weeks. Cora King MD [address] [place],[address], [place], [address], [place] - [facility] in [facility], 7 15:00:33 Gastritis 4666605 Active 2020 [place] Hawkins in [facility], 13:47:21 Irritable bowel syndrome 22363661 Active 2020 [place] Hawkins in [facility], 13:47:26 Problem Notes None recorded. Procedures Surgical History Date Name Laterality Status Provider Name and Address Organization Details Recorded Time 09/12/19 22 Colposcopy completed Cora King MD [address] [facility],[address], [place], [address], [place] - [facility] in [facility], 09/12/2021 09:23:11 06/14/20 20 Colposcopy completed Cora King MD [address] [facility],[address], [place], [address], [place] - [facility] in [facility], 06/14/2020 09:36:36 11/27/19 20 Colposcopy completed Janet Madden in [facility], 12/09/2020 08:15:15 04/18/20 16 Other completed Janet Madden in [facility], 11/07/2016 13:03:57 11/25/19 16 Colposcopy completed Cora King MD [address], [place], [address], [place] - [facility] in [facility], 11/25/2015 11:04:38 12/05/19 15 Cholecystectomy completed Janet Madden in [facility], 01/07/2016 08:52:33 Tonsillectomy completed Josette Madden in [facility], 10/14/2015 13:29:10 Other completed Josette Madden in [facility], 10/14/2015 13:29:10 Imaging Results None recorded. Procedure Notes None recorded. Medical Equipment None Reported. Allergies No known drug allergies Medications Name Sig Start Date Stop Date Status Note LastModified by Organization Details LastModified Time amoxicillin 500 mg capsule 12/17 completed Not Available Not Available Not Available venlafaxine ER 37.5 mg capsule,ext ended release 24 hr 12/09 completed Not Available Not Available Not Available venlafaxine ER 75 mg capsule,ext ended release 24 hr 12/09 completed Not Available Not Available Not Available azithromyci n 250 mg tablet 06/19 completed Not Available Not Available Not Available fluconazole 150 mg tablet TAKE 1 TABLET BY MOUTH FOR 1 DAY 08/16 completed Not Available Not Available Not Available benzonatate 200 mg capsule 01/01 completed Not Available Not Available Not Available hydrocortis one valerate 0.2 % topical cream 11/07 completed Not Available Not Available Not Available hydrocodone 5 mg-acetamin ophen 325 mg tablet 06/19 completed Not Available Not Available Not Available metronidazo le 0.75 % (37.5 mg/5 gram) vaginal gel INSERT 1 APPLICATO RFUL VAGINALLY EVERY DAY FOR 7 DAYS 03/02 completed Not Available Not Available Not Available ondansetron HCl 4 mg tablet TAKE 1 TABLET BY MOUTH EVERY 8 HOURS NEEDED FOR NAUSEA AND VOMITING 08/16 completed Not Available Not Available Not Available famotidine 40 mg tablet TAKE 1 TABLET BY MOUTH TWICE A DAY active Not Available Not Available No t Available sumatriptan 50 mg tablet PLEASE SEE ATTACHED FOR DETAILED DIRECTION S 08/16 completed Not Available Not Available Not Available metronidazo le 500 mg tablet TAKE 1 TABLET BY MOUTH TWICE A DAY FOR 7 DAYS 12/09 completed Not Available Not Available Not Available nortriptyli ne 25 mg capsule 12/17 completed Not Available Not Available Not Available oxycodone-a cetaminophe n 5 mg-325 mg tablet 06/19 completed Not Available Not Available Not Available hydrocortis one 2.5 % topical cream with perineal applicator 08/16 completed Not Available Not Available Not Available amoxicillin 875 mg tablet TAKE 1 TABLET BY MOUTH EVERY 12 HOURS FOR 10 DAYS 08/16 completed Not Available Not Available Not Available hyoscyamine ER 0.375 mg tablet,exte nded release,12 hr TAKE 1 TABLET BY MOUTH TWICE A DAY active Not Available Not Available No t Available cephalexin 500 mg capsule 06/07 completed Not Available Not Available Not Available fluoxetine 10 mg capsule TAKE 1 CAPSULE BY MOUTH WITH FOOD 08/16 completed Not Available Not Available Not Available Iophen C-NR 10 mg-100 mg/5 mL oral liquid 11/07 completed Not Available Not Available Not Available lorazepam 1 mg tablet 11/07 completed Not Available Not Available Not Available ibuprofen 600 mg tablet 12/17 completed Not Available Not Available Not Available methylpredn isolone 4 mg tablets in a dose pack 01/01 completed Not Available Not Available Not Available ondansetron 4 mg disintegrat ing tablet DISSOLVE 1 TABLET ON THE TONGUE EVERY 8 HOURS NEEDED FOR NAUSEA OR VOMITING. 08/16 completed Not Available Not Available Not Available fluoxetine 20 mg capsule TAKE 1 CAPSULE BY MOUTH EVERY DAY 08/16 completed Not Available Not Available Not Available sertraline 50 mg tablet 05/05 completed Not Available Not Available Not Available metoclopram sofiya 10 mg tablet TAKE 1 TABLET BY MOUTH EVERY 6 HOURS NEEDED FOR NAUSEA AND VOMITING 08/16 completed Not Available Not Available Not Available amoxicillin 875 mg-potassiu m clavulanate 125 mg tablet TAKE 1 TABLET BY MOUTH TWICE A DAY FOR 7 DAYS 08/16 completed Not Available Not Available Not Available Sprintec (28) 0.25 mg-35 mcg tablet one tablet orally daily, skip the placebo week and take active pills continuou sly 06/07 completed Not Available Not Available Not Available levonorgest rel 0.15 mg-ethinyl estradiol 30 mcg tablets,3 mos pack(91) Take 1 tablet every day by oral route. 06/07 completed Not Available Not Available Not Available nitrofurant oin monohydrate /macrocryst als 100 mg capsule TAKE 1 CAPSULE BY MOUTH TWICE A DAY FOR 5 DAYS 08/16 completed Not Available Not Available Not Available chlorhexidi ne gluconate 0.12 % mouthwash 11/07 completed Not Available Not Available Not Available Multi Complete with Iron active Not Available Not Available No t Available Probiotic active Not Available Not Berta ilable Not Available Mariann All[facility] 12/09 completed Not Available Not Available Not Available Fluzone Quad 2018-19(PF) 60 mcg(15 mcgx4)/0.5 mL intramuscul ar syringe TO BE ADMINISTE RED BY PHARMACIS T FOR IMMUNIZAT ION active Not Available Not Available No t Available Flowflex COVID-19 Antigen Home Test kit active Not Available Not Available Not Available Vitals Date Recorded Body height Body temperature Body mass index (BMI) Body weight Heart rate Systolic blood pressure Diastolic blood pressure Provider Name and Address Organization Details Last Updated DateTime 1 160.02 cm 97.6 [degF] 44.5 kg/m2 413825. 68 g 95 /min 145 mm[Hg] 82 mm[Hg] Lenora Madden in [facility], 1 13:46:38 Date Recorded Body height Body mass index (BMI) Body weight Body temperature Heart rate Systolic blood pressure Diastolic blood pressure Provider Name and Address Organization Details Last Updated DateTime 2 160.02 cm 45.8 kg/m2 521665. 99 g 97.4 [degF] 93 /min 131 mm[Hg] 79 mm[Hg] Janet Madden in [facility], 2 08:50:33 Date Recorded Body height Body mass index (BMI) Body weight Heart rate Systolic blood pressure Diastolic blood pressure Provider Name and Address Organization Details Last Updated DateTime 2 160.02 cm 46.4 kg/m2 144329. 2 g 67 /min 135 mm[Hg] 78 mm[Hg] Lenora Madden in [facility], 2 08:27:07 Date Recorded Body height Body mass index (BMI) Body weight Heart rate Systolic blood pressure Diastolic blood pressure Provider Name and Address Organization Details Last Updated DateTime 2 160.02 cm 45.7 kg/m2 459883. 83 g 68 /min 126 mm[Hg] 79 mm[Hg] Lenora Madden in [facility], 2 08:11:41 Date Recorded Body height Body mass index (BMI) Body weight Body temperature Heart rate Systolic blood pressure Diastolic blood pressure Provider Name and Address Organization Details Last Updated DateTime 4 160.02 cm 43.8 kg/m2 543347. 32 g 97.1 [degF] 98 /min 139 mm[Hg] 78 mm[Hg] Janet Giron [place] - [facility], 08:10:36 Social History Question Answer Notes LastModified by Organization Details LastModified Time Tobacco Smoking Status Former Smoker Not Available [facility] 06/08/2020 03:19:37 What Is Your Level Of Alcohol Consumption? None Very Rare. Information not available 06/07/2021 What Is Your Level Of Caffeine Consumption? None Rare Information not available 03/02/2022 In The 14 Days Before Symptom Onset, Have You Had Close Contact With A Laboratory-confi rmed COVID-19 While That Case Was Ill? No Information not available 06/07/2021 In The 14 Days Before Symptom Onset, Have You Had Close Contact With A Person Who Is Under Investigation For COVID-19 While That Person Was Ill? No Information not available 06/07/2021 Have You Been To An Area Known To Be High Risk For COVID-19? No Information not available 06/07/2021 Are You Currently Employed? Yes Information not available 06/07/2021 What Type Of Diet Are You Following? REGULAR [id number] Information not available 06/08/2020 Which Illicit Or Recreational Drugs Have You Used? Marijuana Occassionally Information not available 09/12/2021 Do You Reside In Or Have You Traveled To An Area Where Ebola Virus Transmission Is Active? No [id number] Information not available 06/08/2020 Do You Or Have You Ever Used E-cigarettes Or Vape? Never Used Electronic Cigarettes [id number] Information not available 06/08/2020 Education 12 Information not available 11/07/2016 What Is The Highest Grade Or Level Of School You Have Completed Or The Highest Degree You Have Received? [id number] Information not available 06/07/2021 Who Is Your Employer? 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 0 Information not available 06/19/2016 Are There Any Guns Present In Your Home? No Information not available 06/07/2021 High Number Of Sexual Partners Yes Information not available 03/03/2016 How Many Years Have You Used Illicit Or Recreational Drugs? 1 Information not available 09/12/2021 To Which Gender Do You Self-identify? Female Information not available 03/03/2016 Marital Status Single Informatio n not available 10/14/2015 What Was The Date Of Your Most Recent Tobacco Screening? 06/15/2022 Information not available 06/15/2022 What Is Your Relationship Status? Single Information not available 06/07/2021 Are You Sexually Active? Yes [id number] Information not available 06/08/2020 At What Age Did You Start Smoking Tobacco? 19 Information not available 09/12/2021 Do You Or Have You Ever Used Smokeless Tobacco? Never Used Smokeless Tobacco [id number] Information not available 06/08/2020 How Much Tobacco Do You Smoke? No [id number] Information not available 06/08/2020 General Stress Level Medium Information not available 11/07/2016 Do You Feel Stressed (tense, Restless, Nervous, Or Anxious, Or Unable To Sleep At Night)? [id number] Information not available 06/07/2021 Do You Use Any Illicit Or Recreational Drugs? Yes Information not available 09/12/2021 How Many Years Have You Smoked Tobacco? 1 [id number] Information not available 06/08/2020 Have You Recently (within The Last 12 Weeks, Or During A Current ) Traveled To Or Lived In A Zika-affected Area? No Information not available 03/03/2016 Do You Or Have You Ever Used Any Other Forms Of Tobacco Or Nicotine? No Information not available 06/07/2021 Sex: Female Functional Status Question Answer Note LastModified by Organizat ion Details LastModified Time What is your exercise level? Occasional [id number] Information not available 06/08/2020 Mental Status None recorded. Family History Relationship Description Onset Age of this Age Resolved Age Notes LastModified by Organization Details LastModified Time Mother Malignant tumor of cervix Found on pathol ogy after Hyster ectomy . Not available 05/05/2020 08:31:44 Paternal Grandfather Cerebrovascu lar accident 73 Not available 0 01/07/2016 09:14:56 Paternal Grandfather Heart disease Not available 10/2015 09:14:56 Father Disorder of prostate cancer [email or web address] Not available 2018 08:23:05 Medical History Condition Response Anesthesia complications N High Blood Pressure N Candidate for MyRisk panel N Autoimmune Condition N Depression N Lung Disease N Defects or Inherited Disease N History of Ovarian Cancer N BRCA testing in past N Anxiety Disorder Y Arthritis N Infertility N History of Cancer N Endometriosis N Kidney or Bladder Problems N Thyroid Problems N GI Problems Y Anemia N History of Breast Cancer N JONNATHAN exposure N Osteopenia N Psychiatric Illness N Diabetes N Headaches or Migraines Y Asthma N Hepatitis N Heart Disease N Hypertension N Osteoporosis N Gynecological History Statement/Question Response Flow Moderate Date of LMP 08/05/2022 Frequency of Cycle (Q days) 28 Menses Monthly No Colposcopy 11/27/2019 Duration of Flow (days) 5 Age at Menarche 12 Current Control Method Condoms Age at First Child 1 Obstetrics History GPAL:G 0 P 0 0 0 0 Immunizations Vaccine Type Date Status Note Provider Nam e and Address Organization Details Recorded Time Tdap 7 completed Janet Meczywor [place] smith in [facility], 11/07/2016 12:59:41 COVID-19, mRNA, LNP-S, PF, 30 mcg/0.3 mL dose 1 completed Janet Meczywor null [place] - [facility] in [facility], 08/16/2023 08:19:38 COVID-19, mRNA, LNP-S, PF, 30 mcg/0.3 mL dose 2 completed Janet Meczywor null MA Dana Madden in [facility], 08/16/2023 08:19:37 IPV 1 completed Janet Meczywor null [place] - [facility] in [facility], 08/16/2023 08:19:37 MMR 1 completed Janet Meczywor null, [place] [facility], 08/16/2023 08:19:37 MMR 7 completed Janet Meczywor null, [place] - [facility], 08/16/2023 08:19:37 COVID-19, mRNA, LNP-S, PF, 30 mcg/0.3 mL dose 1 completed Janet Meczywor null, [place] - [facility], 08/16/2023 08:19:38 Tdap 7 completed Janet Meczywor null, [place] - [facility], 08/16/2023 08:19:38 varicella 0 completed Janet Meczywor null, [place] - [facility], 08/16/2023 08:19:38 varicella 8 completed Janet Meczywor null, [place] - [facility], 08/16/2023 08:19:38 OPV 6 completed Janet Meczywor null, [place] - [facility], 08/16/2023 08:19:38 OPV 6 completed Janet Meczywor null, [place] - [facility], 08/16/2023 08:19:38 OPV 7 completed Janet Meczywor null, [place] - [facility], 08/16/2023 08:19:38 Influenza, split virus, trivalent, preservative 2 completed Janet Meczywor null, [place] - [facility], 08/16/2023 08:19:38 Influenza, split virus, trivalent, preservative 4 completed Janet Meczywor null, [place] - [facility], 08/16/2023 08:19:38 Influenza, split virus, trivalent, preservative 1 completed Janet Meczywor null, [place] - [facility], 08/16/2023 08:19:38 Influenza, split virus, trivalent, preservative 2 completed Janet Meczywor null, [place] - [facility], 08/16/2023 08:19:38 Novel [id number] 1 completed Janet Meczywor null, [place] - [facility], 08/16/2023 08:19:38 HPV, quadrivalent 2 completed Janet Meczywor null, [place] - [facility], 08/16/2023 08:19:38 HPV, quadrivalent 9 completed Janet Meczywor null, [place] - [facility], 08/16/2023 08:19:38 HPV, quadrivalent 9 completed Janet Meczywor null, [place] - [facility], 08/16/2023 08:19:38 HPV, quadrivalent 8 completed Janet Meczywor null, [place] - [facility], 08/16/2023 08:19:38 Td (adult), 2 Lf tetanus toxoid, preservative free, adsorbed 7 completed Janet Meczywor null, [place] - [facility], 08/16/2023 08:19:38 Hep B, adolescent or pediatric 7 completed Janet Meczywor null, [place] - [facility], 08/16/2023 08:19:38 Hep B, adolescent or pediatric 6 completed Janet Meczywor null, [place] - [facility], 08/16/2023 08:19:38 Hep B, adolescent or pediatric 6 completed Janet Meczywor null, [place] - [facility], 08/16/2023 08:19:38 Hib (PRP-T) 6 completed Janet Meczywor null, [place] - [facility], 08/16/2023 08:19:38 Hib (PRP-T) 7 completed Janet Meczywor null, [place] - [facility], 08/16/2023 08:19:38 Hib (PRP-T) 6 completed Janet Meczywor null, [place] - [facility] in [facility], 08/16/2023 08:19:38 Hib (PRP-T) 6 completed Janet Meczywor null, [place] - [facility] in [facility], 08/16/2023 08:19:38 meningococcal MCV4P 9 completed Janet Meczywor null, [place] - [facility] in [facility], 08/16/2023 08:19:38 meningococcal MCV4P 2 completed Janet Meczywor null, [place] - [facility] in [facility], 08/16/2023 08:19:38 DTaP 1 completed Janet Meczywor null, [place] - [facility] in [facility], 08/16/2023 08:19:38 DTaP 6 completed Janet Meczywor null, [place] - [facility] in [facility], 08/16/2023 08:19:38 DTaP 6 completed Janet Meczywor null, [place] - [facility] in [facility], 08/16/2023 08:19:38 DTaP 6 completed Janet Meczywor null, [place] - [facility] in [facility], 08/16/2023 08:19:38 DTaP 7 completed Janet Meczywor null, [place] - [facility], 08/16/2023 08:19:38 Influenza, split virus, quadrivalent, PF 9 completed Janet Meczywor null, [place] - [facility] in [facility], 08/16/2023 08:19:38 Past Encounters Encounter ID Performer Location Encounter Start Date Encounter Closed Date Diagnosis/Indication Diagnosis SNOMED-CT Code Diagnosis ICD10 Code Diagnosis Note [id number] MD CORA Wiseman MD [address] [place] [address],[address] [place] [address] 10/14/2015 12:57:52 10/14/2015 16:09:04 Specialized medical examination 77434208 Z01.419 Venereal d isease screening 762037517 Z11.3 [id number] MD CORA Wiseman MD [address] [place] [address] [place] [address] 11/25/2015 10:10:44 11/25/2015 12:08:55 Cytologic finding [id number] R87.612 [id number] MD CORA Wiseman MD [address] [place] [address], [place] [address] 01/07/2016 08:40:35 01/07/2016 11:02:33 Dysfunctional uterine bleeding 28850344 N93.8 Diarrhea 07977224 R19.7 Dizziness 469802539 R42 [id number] MD CORA Wiseman MD [address] [place] [address],[facility] [place] [address] 03/03/2016 13:21:56 03/03/2016 14:20:44 Low grade squamous intraepithelial lesion on cervical Papanicolaou smear 9602049100 9105 R87.612 [id number] MD CORA Wiseman MD [address] [place] [address],[facility] [place] [address] 06/19/2016 12:57:06 06/19/2016 15:34:48 Atypical squamous cells of undetermined significance on cervical Papanicolaou smear 565852209 R87.610 [id number] MD CORA Wiseman MD [address] [place] [address],[facility] [place] [address] 11/07/2016 12:46:11 11/07/2016 15:12:24 Uses oral contraception 8126299 Z79.3 Specialize d medical examination 93021107 Z01.419 Venereal d isease screening 065097277 Z11.3 [id number] MD CORA Wiseman MD [address] [place] [address], [place] [address] 12/17/2017 08:59:18 12/17/2017 15:16:30 Specialized medical examination 45997098 Z01.419 Venereal d isease screening 484221354 Z11.3 Dysmenorrhea 290908201 N 94.6 Uses oral contraception 9121519 Z79.3 [id number] MD CORA Wiseman MD [address] [place] [address], [place] [address] 01/01/2019 08:10:50 01/01/2019 10:48:43 Specialized medical examination 49841417 Z01.419 Venereal d isease screening 040329026 Z11.3 Uses oral contraception 8701659 Z79.3 [id number] MD CORA Wiseman MD [address] [place] [address],[facility] [place] [address] 05/05/2020 08:28:28 05/05/2020 09:10:44 Specialized medical examination 31968198 Z01.419 Venereal d isease screening 082195623 Z11.3 [id number] MD CORA Wiseman MD [address] [place] [address],[facility] [address] 05/18/2020 08:54:11 05/18/2020 10:24:20 Vulvitis 22687406 N76.2 B96.89 Candidal vulvovaginitis 91140043 B37.3 [id number] MD CORA Wiseman MD [address] [place], [place] [address] [address] 06/14/2020 09:11:33 06/14/2020 10:40:41 Cytologic finding [id number] R87.612 [id number] MD CORA Wiseman MD [address] [place] [address],[facility] [place] [address] 12/09/2020 08:07:30 12/09/2020 09:26:55 Low grade squamous intraepithelial lesion on cervical Papanicolaou smear 7654002402 9105 R87.612 Vulvitis 08469865 N76.2 B96.89 Candidal vulvovaginitis 90604920 B37.3 [id number] MD CORA Wiseman MD [address] [place] [address],[place] [address] 06/07/2021 13:38:12 06/07/2021 15:00:44 Specialized medical examination 73897261 Z01.419 Venereal d isease screening 172066406 Z11.3 Acute lowe r urinary tract infection 716423082 R30.0 Amenorrhea 37581030 N91. 2 [id number] MD CORA Wiseman MD [address] [place] [address],[place] [address] 09/12/2021 08:47:07 09/12/2021 10:19:45 Cytologic finding 924466808 R87.612 Vulvitis 59845591 N76.2 B96.89 Candidal vulvovaginitis 25838861 B37.3 [id number] MD CORA Wiseman MD [address] [place] [address], [place] [address] 03/02/2022 08:21:52 03/02/2022 09:37:10 Low grade squamous intraepithelial lesion on cervical Papanicolaou smear 1630368932 9105 R87.612 [id number] MD CORA Wiseman MD [address] [place] [address],[place] [address] 06/15/2022 08:08:29 06/15/2022 09:12:11 Specialized medical examination 53438373 Z01.419 Venereal d isease screening 550503603 Z11.3 [id number] MD CORA Wiseman MD [address] [place] [address],[place] [address] 08/16/2023 08:04:46 08/16/2023 15:46:39 Specialized medical examination 70048849 Z01.419 Venereal d isease screening 579927379 Z11.3 Health Concerns Section Related Observation LastModified by Organization Detai ls LastModified Time None Recorded Concern Status LastModified by Organization Details LastModified Time None Recorded Advance Directives Directive None Recorded Payers Encounter Date Sequence Insurance Name Policy Number Policy Palacio Covered Member ID Palacio Member ID Guarantor Name 06/07/2021 1 [place] [id number] Sabas Abbott [id number] Sharee De Guzman 09/12/2021 1 [place] [id number] Sabas Abbott [id number] Sharee De Guzman 03/02/2022 1 [facility] Sharee De Guzman [id number] Sharee Breearun 06/15/2022 1 [facility] ([facility]) Sharee Breearun [id number] Sharee De Guzman 08/16/2023 1 [facility] Sharee Breearun [id number] Sharee De Guzman Notes Date Note Type Note Provider Name and Address Organization Details Recorded Time 06/07/2021 text/html She is here for annual exam. She had been having severe dysmenorrhea, she was changed to the 3 month OCP pill pack and this resolved her dysmenorrhea. She has IBS and states that she was advised by her GI doctor to stop her OCP as they felt it might be contributing to her GI issues. She stopped the OCP in March, had a withdrawal menses beginning 04/04/21, has not had any menses since then, it is June now She is sexually active, uses condoms. Same partner for 6 months. She would be fine if she were to get . Cora King MD [address] [facility] [address] [facility],[address], [place], [address], [place] [facility], 06/07/2021 14:40:55 09/12/2021 text/html She is here for colposcopy after recent pap with LSIL. 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 Pap 12/2020 was negative, pap 06/07/21 had LSIL. note from 06/2020: She is here for pap with LSIL, for colpo.Clara had LSIL on pap in 2015, colpo removed it and this is the first suggestion of a recurrence. She has bene under a lot of stress, she works in [employer], now during covid it is stressful. Cora King MD [address], [place], [id number], [facility], 09/12/2021 09:23:35 03/02/2022 text/html She is here for repeat pap. Prior pap had LSIL, colpo was negative. Cora King MD [address], [place], [address], [place] - [facility], 03/02/2022 08:42:59 06/15/2022 text/html She is here for annual exam, doing well, off the OCP, using condoms, same partner for 18 months, would be ok if she became . Declines rx for PNV. note from 2020: She is here for annual exam. She had been having severe dysmenorrhea, she was changed to the 3 month OCP pill pack and this resolved her dysmenorrhea.She has IBS and states that she was advised by her GI doctor to stop her OCP as they felt it might be contributing to her GI issues.She stopped the OCP in March, had a withdrawal menses beginning 04/04/21, has not had any menses since then, it is June nowShe is sexually active, uses condoms. Same partner for 6 months. She would be fine if she were to get . Cora King MD [address], [place], [address], [place] - [facility], 06/15/2022 08:56:01 08/16/2023 text/html She is here for annual, doing well, does not desire control, would be fine if she were to get , declines PNV, explained that this is helpful but needs to be started prior to conception, and why, she still declines.Same partner fro nearly 3 years. Got a job at [employer] in the [employer] office a year ago, is happy. Note from 2021: She is here for annual exam, doing well, off the OCP, using condoms, same partner for 18 months, would be ok if she became . Declines rx for PNV. Cora King MD [address] [facility] [facility],[address], [place], [phone], [place] - [facility], 08/16/2023 10:54:25 OBGyn Episode No OBEpisode recorded.
== END 2024-09-10 09:04 | disposition home or self-care (01) ==
LOC: HO.XRAY 09:03
PROVIDERS: PCP Nurse Practitioner Family; Visit Provider Internal Medicine
DX: R11.10 Vomiting, unspecified (principal); R10.9 Unspecified abdominal pain
CPT/HCPCS: 74240

== ENCOUNTER → 2024-09-10 09:06 | Outpatient (BNV) | payer OTHER, SELFPAY | PROVIDERS: PCP Nurse Practitioner Family; Visit Provider Physician Assistant Surgical | DX: R10.9 Unspecified abdominal pain (principal) | CPT/HCPCS: 74246; 74248 ==

== ENCOUNTER 2024-10-08 14:27 | Outpatient (AMB) | payer OTHER, SELFPAY ==
--- NOTE | 2024-10-08 14:27 | MHC.OFFVIS ---
Intake Visit Reasons: 2 mo F/U GI sx Intake Note: Sharee presents as a telehealth for a 2 month follow up. CC: states that her symptoms have gotten better but states she still has episodes of IBS flare ups. Allergies No Known Allergies Allergy (Verified 10/08/24 14:28) HPI Comments Details: 28 y.o F who is here to establish care for IBS and GERD. Reports had CCY in 2015 following which she started having abd pain and diarrhea and was then diagnosed with IBS. Was started on hyosciamine which worked well for her for a few years. However earlier this year she lost her insurance and was not able to take this med for almost half a year which restarted these sx. However now the new insurance does not cover it so had to switch to Dicyclomine. Despite this continues to have sx and feels that effect only lasts for 1-2 hours. Has epigastric and L sided abd pain with nausea and diarrhea. 5 BMs per day. Has not had a formed BM since CCY. Pt also becomes nauseous within 1-2 hours of eating shalonda when the food is rich in tomatoes or onions or fibrous vegetables. When she does throw up can still see pieces of solid food even if throws up the next day. Also on pepcid 40 BID for left sided pain and possible gastritis. Reports EGD in 2020 was normal. (Dr Oliva) 10/08/24: Here as televisit. Reports reflux sx and post prandial vomiting is better. However, still has one episode of severe abd cramping with diarrhea - which is not predictable. Taking hyosciamine. Sometimes takes loperamide OTC shalonda if has to be out of the house for a long time which helps her more in her opinion. GES reviewed - 4h study MILDLY abnormal - however pt says she was called in for the 4h priyanka, 20 mins earlier than scheduled so that could have contributed to it. PFSH Medical History IBS (irritable bowel syndrome) Depression Anxiety Surgical History Hx of colonoscopy History of esophagogastroduodenoscopy (EGD) History of dental surgery Hx of cholecystectomy Hx of wisdom tooth extraction Hx of tonsillectomy Family History Father Prostate cancer Asthma Mother Hyperthyroidism Abnormal cells in breast Abnormal cells of cervix Brother No problems noted. Social History Alcohol intake: current Alcohol intake frequency: holidays/special occasions only Substance Use Type: Marijuana Review of Systems Const All systems reviewed & are unremarkable except as noted in HPI and below Physical Exam Vital Signs: Video visit: No acute distress No icterus noted No facial asymmetry Speaking in full sentences Telehealth Telehealth Telehealth Platform: Other (please specify) (started off video and then switched to phone due to connectivitiy issues ) Location of provider rendering services: practice address Location of patient: address on file Patient Identification confirmed using: Name, : Yes Telehealth method: voice only (initially video ) Patient verbally consented to treatment: Yes Patient verbally consented to billing insurance company: Yes Patient informed of any privacy concerns related to visit: Yes Minutes spent on Phone/Video with Pt.: 14 Assessment & Plan Assessment & Plan (1) Abdominal pain: Code(s): R10.9 - Unspecified abdominal pain Category: Medical (2) Irritable bowel syndrome with diarrhea: Code(s): K58.0 - Irritable bowel syndrome with diarrhea Category: Medical Plan Ddx include IBD, IBS, microscopic colitis, malabsorption. Plan: - Pt reminded to get labs done - portal msg sent - OK to try low dose loperamide at night time - if worsens N/V, can space to every other day - Cont hyoscyamine Follow up 3 months Medications: New loperamide (Anti-Diarrheal (loperamide)) 2 mg PO BEDTIME 30 days 30 tabs 1RF loose stool loperamide (Anti-Diarrheal (loperamide)) 1 mg (1/2 x 2 mg) PO BEDTIME 30 days 15 tabs 1RF loose stool Refilled hyoscyamine sulfate 0.125 mg PO BID-QID 90 days PRN 60 tabs 1RF dyspepsia Coding Level of Care Code Tele Est Pt Level 4 (13199) Diagnoses Abdominal pain R10.9 Irritable bowel syndrome with diarrhea K58.0
--- OUTSIDE RECORDS SUMMARY | 2024-10-08 17:23 | XMS_ITS | Data Portability ---
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 Active? No [id number] Information not available 06/08/2020 Do You Or Have You Ever Used E-cigarettes Or Vape? Never Used Electronic Cigarettes [id number] Information not available 06/08/2020 Education 12 Information not available 11/07/2016 What Is The Highest Grade Or Level Of School You Have Completed Or The Highest Degree You Have Received? [id number] Information not available 06/07/2021 Who Is Your Employer? [employer] Information not available 09/24/2024 What Is Your Occupation? [employer] Information not available 09/24/2024 How Many Days In The Past Year Have You Had A Heavy Drinking Consumption (4+ Female, 5+ Male)? 0 [email or web address] Information not available 06/19/2016 Are There Any Guns Present In Your Home? No Information not available 06/07/2021 High Number Of Sexual Partners Yes Information not available 03/03/2016 How Many Years Have You Used Illicit Or Recreational Drugs? 1 Information not available 09/12/2021 To Which Gender Do You Self-identify? Female Information not available 03/03/2016 Marital Status Single [email or web address] Informatio n not available 10/14/2015 What Was The Date Of Your Most Recent Tobacco Screening? 09/24/2024 Information not available 09/24/2024 What Is Your Relationship Status? Single Information not available 06/07/2021 Are You Sexually Active? Yes [id number] Information not available 06/08/2020 At What Age Did You Start Smoking Tobacco? 19 Information not available 09/12/2021 Do You Or Have You Ever Used Smokeless Tobacco? Never Used Smokeless Tobacco [id number] Information not available 06/08/2020 How Much Tobacco Do You Smoke? No [id number] Information not available 06/08/2020 General Stress Level Medium Information not available 11/07/2016 Do You Feel Stressed (tense, Restless, Nervous, Or Anxious, Or Unable To Sleep At Night)? [id number] Information not available 06/07/2021 Do You Use Any Illicit Or Recreational Drugs? Yes Information not available 09/12/2021 How Many Years Have You Smoked Tobacco? 1 [id number] Information not available 06/08/2020 Have You Recently [...] Time What is your exercise level? Occasional [id number] Information not available 06/08/2020 Mental Status None [...] for MyRisk panel N Autoimmune Condition N Thyroid Problems N Kidney or Bladder Problems N Depression N GI Problems Y Lung Disease N Defects or Inherited Disease N Anemia N History of Ovarian Cancer N History of Breast Cancer N JONNATHAN exposure N BRCA testing in past N Osteopenia N Psychiatric Illness N Diabetes N Anxiety Disorder Y Arthritis N Headaches or Migraines Y Infertility N Asthma N History of Cancer N Endometriosis N Hepatitis N Heart Disease N Hypertension N Osteoporosis N Gynecological History Statement/Question Response Flow Moderate Date of LMP 09/11/2024 Frequency of Cycle (Q days) 28 Menses Monthly Y Colposcopy 11/27/2019 Duration of Flow (days) 5 Age at Menarche 12 Current Control Method Condoms Age at First Child 1 Obstetrics History GPAL:G 0 P 0 0 0 0 Immunizations Vaccine Type Date Status Note Provider Kale lee and Address Organization Details Recorded Time Tdap 7 completed Janet smith [place] - [facility], 11/07/2016 12:59:41 COVID-19, mRNA, LNP-S, PF, 30 mcg/0.3 mL dose 1 completed Janet Meczywor null, [place] - [facility], 08/16/2023 08:19:38 COVID-19, mRNA, LNP-S, PF, 30 mcg/0.3 mL dose 2 completed Janet Meczywor null, [place] - [facility], 08/16/2023 08:19:37 IPV 1 completed Janet Meczywor null, [place] - [facility], 08/16/2023 08:19:37 MMR 1 completed Janet Meczywor [...] [facility], 08/16/2023 08:19:38 varicella 8 completed [...] Janet Meczywor null, [place] - [facility], 08/16/2023 08:19:38 Novel [id number] 1 completed Janet Meczywor null, [place] - [facility], 08/16/2023 08:19:38 HPV, quadrivalent 2 completed Janet Meczywor null, [place] - [facility], 08/16/2023 08:19:38 HPV, quadrivalent 9 completed Janet Meczywor null, [place] - [facility], 08/16/2023 08:19:38 HPV, quadrivalent 9 [...] [facility], 08/16/2023 08:19:38 meningococcal MCV4P 9 completed Janet Meczywor null, [place] - [facility], 08/16/2023 08:19:38 meningococcal MCV4P 2 completed Janet Meczywor null, [place] - [facility], 08/16/2023 08:19:38 DTaP 1 completed Janet Meczywor null, [place] - [facility], 08/16/2023 08:19:38 DTaP 6 completed Janet Meczywor null, [place] - [facility], 08/16/2023 08:19:38 DTaP 6 completed Janet Meczywor null, [place] - [facility], 08/16/2023 08:19:38 DTaP 6 completed Janet Meczywor null, [place] - [facility], 08/16/2023 08:19:38 DTaP 7 completed OUSMANE Farrar in [facility], 08/16/2023 08:19:38 Influenza, split virus, quadrivalent, PF 9 completed OUSMANE Farrar in [facility], 08/16/2023 08:19:38 Past Encounters Encounter ID Performer Location Encounter Start Date Encounter Closed Date Diagnosis/Indication Diagnosis SNOMED-CT Code Diagnosis ICD10 Code Diagnosis Note [id number] MD CORA Wiseman MD [address] [place] [address],[facility] [place] [address] 10/14/2015 12:57:52 10/14/2015 16:09:04 Specialized medical examination 81600380 Z01.419 Venereal d isease screening 488583579 Z11.3 [id number] MD CORA Wiseman MD [address] [place] [address] [place] [address] 11/25/2015 10:10:44 11/25/2015 12:08:55 Cytologic finding 000752994 R87.612 [id number] MD CORA Wiseman MD [address] [place] [address],[facility] [place] [address] 01/07/2016 08:40:35 01/07/2016 11:02:33 Dysfunctional uterine bleeding 42089954 N93.8 Diarrhea 41559714 R19.7 Dizziness 181299602 R42 [id number] MD CORA Wiseman MD [address] [place], [place] [address] [address] 03/03/2016 13:21:56 03/03/2016 14:20:44 Low grade squamous intraepithelial lesion on cervical Papanicolaou smear 0484743759 9105 R87.612 [id number] MD CORA Wiseman MD [address] [place], [place] [address] [place] [address] 06/19/2016 12:57:06 06/19/2016 15:34:48 Atypical squamous cells of undetermined significance on cervical Papanicolaou smear 113749904 R87.610 [id number] MD CORA Wiseman MD [address] [facility] [facility] [address] 11/07/2016 12:46:11 11/07/2016 15:12:24 Uses oral contraception 2197117 Z79.3 Specialize d medical examination 10828507 Z01.419 Venereal d isease screening 122762497 Z11.3 [id number] MD CORA Wiseman MD [address] [facility] [place] [facility] [place] [address] 12/17/2017 08:59:18 12/17/2017 15:16:30 Specialized medical examination 92635373 Z01.419 Venereal d isease screening 744232779 Z11.3 Dysmenorrhea 394258864 N 94.6 Uses oral contraception 7185567 Z79.3 [id number] MD CORA Wiseman MD [address] [place] [address],[address] [place] [facility] [place] [address] 01/01/2019 08:10:50 01/01/2019 10:48:43 Specialized medical examination 76617642 Z01.419 Venereal d isease screening 181446112 Z11.3 Uses oral contraception 1793136 Z79.3 [id number] MD CORA Wiseman MD [address] [place] [address],[place] [address] 05/05/2020 08:28:28 05/05/2020 09:10:44 Specialized medical examination 09672031 Z01.419 Venereal d isease screening 136875996 Z11.3 [id number] MD CORA Wiseman MD [address] [place] [address],[place] [address] 05/18/2020 08:54:11 05/18/2020 10:24:20 Vulvitis 76667828 N76.2 B96.89 Candidal vulvovaginitis 01726754 B37.3 [id number] MD CORA Wiseman MD [address] [place] [address],[place] [address] 06/14/2020 09:11:33 06/14/2020 10:40:41 Cytologic finding [id number] R87.612 [id number] MD CORA Wiseman MD [address] [place] [address] [place] [address] 12/09/2020 08:07:30 12/09/2020 09:26:55 Low grade squamous intraepithelial lesion on cervical Papanicolaou smear 9872478330 9105 R87.612 Vulvitis 27705693 N76.2 B96.89 Candidal vulvovaginitis 93734821 B37.3 [id number] MD CORA Wiseman MD [address] [place] [address],[place] [address] 06/07/2021 13:38:12 06/07/2021 15:00:44 Specialized medical examination 77718677 Z01.419 Venereal d isease screening 177522576 Z11.3 Acute lowe r urinary tract infection 402547494 R30.0 Amenorrhea 63885736 N91. 2 [id number] MD CORA Wiseman MD [address] [place] [address] [place] [address] 09/12/2021 08:47:07 09/12/2021 10:19:45 Cytologic finding 643712950 R87.612 Vulvitis 32801083 N76.2 B96.89 Candidal vulvovaginitis 70187623 B37.3 [id number] MD CORA Wiseman MD [address] [place] [address] [place] [address] 03/02/2022 08:21:52 03/02/2022 09:37:10 Low grade squamous intraepithelial lesion on cervical Papanicolaou smear 6332058791 9105 R87.612 [id number] MD CORA Wiseman MD [address] [place] [address] [place] [address] 06/15/2022 08:08:29 06/15/2022 09:12:11 Specialized medical examination 59091397 Z01.419 Venereal d isease screening 657797468 Z11.3 [id number] MD CORA Wiseman MD [address] [facility] [place] [address] 08/16/2023 08:04:46 08/16/2023 15:46:39 Specialized medical examination 57186905 Z01.419 Venereal d isease screening 227832100 Z11.3 [id number] MD CORA Wiseman MD [address] [facility] [place] [address] 09/24/2024 07:59:27 09/24/2024 11:18:14 Specialized medical examination 59224187 Z01.419 Venereal d isease screening 748144377 Z11.3 Vulvitis 42770535 N76.2 B96.89 Health Concerns Section Related Observation LastModified by Organization Detai ls LastModified Time None Recorded Concern Status LastModified by Organization Details LastModified Time None Recorded Advance Directives Directive None Recorded Payers Encounter Date Sequence Insurance Name Policy Number Policy Palacio Covered Member ID Palacio Member ID Guarantor Name 09/12/2021 1 [facility]: OUT OF [place] - BLUE CARD [id number] Sabas Kamararosa [id number] Sharee De Guzman 03/02/2022 1 [facility] Sharee De Guzman [id number] Sharee De Guzman 06/15/2022 1 [facility] Sharee De Guzman [id number] Sharee De Guzman 08/16/2023 1 [facility] Sharee De Guzman [id number] Sharee De Guzman 09/24/2024 1 [facility] [id number] Sharee De Guzman [id number] Sharee De Guzman Notes Date Note Type Note Provider Name and Address Organization Details Recorded Time 09/12/2021 text/html She is here for colposcopy after recent pap with LSIL. 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 Pap 12/2020 was negative, pap 06/07/21 had LSIL. note from 06/2020: She is here for pap with LSIL, for colpo.[facility] had LSIL on pap in 2016, colpo removed it and this is the first suggestion of a recurrence. 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 Cora King MD [address] [place],[address], [place], [address], [place] - [facility], 09/12/2021 09:23:35 03/02/2022 text/html She is here for repeat pap. Prior pap had LSIL, colpo was negative. Cora King MD [address], [place], [address], [place] - [facility], 03/02/2022 08:42:59 06/15/2022 text/html She is [...] MD [address], [place], [address], [place] - [facility], 06/15/2022 08:56:01 08/16/2023 text/html She is here for annual, doing well, does not desire control, would be fine if she were to get , declines PNV, explained that this is helpful but needs to be started prior to conception, and why, she still declines.Same partner fro nearly 3 years. Got a job at [employer] in the [employer] office a year ago, is happy. Note from 2021: She is here for annual exam, doing well, off the OCP, using condoms, same partner for 18 months, would be ok if she became . Declines rx for PNV. Cora King MD [address] [place],[address], [place], [address], [place] - [facility], 08/16/2023 10:54:25 09/24/2024 text/html She is here for annual, doing well. Same partner 4 years, they live together now. Condoms, but would be fine if she were to get . Has had an on and off vaginal fishy odor for a month, like she had when she had BV previously. Working at [employer] in [employer] now, is happy. Note from 2023: She is here for annual, doing well, does not desire control, would be fine if she were to get , declines PNV, explained that this is helpful but needs to be started prior to conception, and why, she still declines.Same partner fro nearly 3 years. Got a job at [employer] in the [employer] office a year ago, is happy. Cora King MD [address], [place], [address], [place] - [facility], 09/24/2024 08:42:05 OBGyn Episode No OBEpisode recorded.
--- OUTSIDE RECORDS SUMMARY | 2024-10-08 17:23 | XMS_ITS | Continuity of Care Document ---
Author Organization [place] [facility],, CORA HENDRICKSON MD Address [address] [facility] [address] [place] [address] Care Team Providers Care Service Station Attendant Name Role Phone LATONYA VELIZ Primary Care Provider Assessment No assessment recorded. Plan of Treatment Reminders Order Date Submit Date Provider Last Modified By Organization Details Last Modified Time Details Appointments None recorded. Lab cytology report, thin prep, smear or scraping, cervical or vaginal 2024 025 Loc[facility]er [facility] (Centralized Electronic Ordering - All Locations), Patient Can Go To The Location Of Their Choice, [id number] 5 14:15:55 wet mount, vaginal 2024 025 [email or web address] n1 In-Office Order, Internal Use Only DO Not Attach Compendium DO Not Attach Compendium, Do Not Delete/merge, [id number] 5 08:31:16 Referral None recorded. Procedures None recorded. Surgeries None recorded. Imaging None recorded. Medication Orders clindamycin 2 % vaginal cream 2024 025 [id number], [address] [facility], [place], [address], 5 08:31:01 Patient TargetsNo targets recorded. Patient Instructions Encounter Date Encounter Id Patient Instructions Last Modified By Organization Details Last Modified Time 09/24/2024 [id number] learning about healthy weight Not available 09/24/2024 [...] when she had BV previously. Working at [employer] in [employer] now, is happy. Note from 2023: She is here for annual, doing well, does not desire control, would be fine if she were to get , declines PNV, explained that this is helpful but needs to be started prior to conception, and why, she still declines. Same partner fro nearly 3 years. Got a job at [employer] in the [place] [employer] [place] a year ago, is happy. She [...] Abnormal Flag Note LastModifiedBy Organization Detail LastModifiedTime 09/24/1909/24/2024 wet mount , vagin al Clue Cells positi ve Not Available In-Office Order Internal Use Only DO Not Attach Compendium DO Not Attach Compendium, Do Not Delete/merge, 09/24/2024 08:30:20 09/24/1909/24/2024 wet mount , vagin al Trichomonas negati ve Not Available In-Office Order Internal Use Only DO Not Attach Compendium DO Not Attach Compendium, Do Not Delete/merge, 09/24/2024 08:30:20 09/24/1909/24/2024 wet mount , vagin al Hyphae negati ve Not Available In-Office Order Internal Use Only DO Not Attach Compendium DO Not Attach Compendium, Do Not Delete/merge, 09/24/2024 08:30:20 09/24/1909/24/2024 wet mount , vagin al atrophic epithelium negati ve Not Available In-Office Order Internal Use Only DO Not Attach Compendium DO Not Attach Compendium, Do Not Delete/merge, [id number] 09/24/2024 08:30:20 Result Notes None recorded. Problems Name Problem SNOMED Code Status Onset Date Resolution Date Notes Provider Name and Address Organization Details Recorded Time Anxiety 94736461 Active advised to see Dr. Robert Hendrickson MD [address], [place], [address], [place] [facility], 6 10:47:36 Cytologic finding 643114645 Active Cora Hendrickson MD [address], [place], [address], [place] [facility], 6 10:47:36 Dysfunctio nal uterine bleeding Active Cora Hendrickson MD [address], [place], [address], [place] [facility], 6 10:52:28 Diarrhea 58317042 Active Cora Hendrickson MD [address], [place], [address], [place] [facility], 6 10:52:28 Dizziness 624385104 Active Cora Hendrickson MD [address], [place], [address], [place] [facility], 6 10:52:28 Dysmenorrh ea 074716747 Active 2016 She had dysmenorrh ea even with the cyclic OCP and so her old vp product had put her on taking it for four packs without placebo straight then having one menses every 12 weeks. Cora Hendrickson MD [address], [place], [address], [place] [facility], 7 15:00:33 Gastritis 5734833 Active 2020 Lenora smith [place] - [facility], 1 13:47:21 Irritable bowel syndrome 09311764 Active 2020 Lenora smith [place] [facility], 13:47:26 Problem Notes None recorded. Procedures Surgical History Date Name Laterality Status Provider Name and Address Organization Details Recorded Time 09/12/19 22 Colposcopy completed Cora Hendrickson MD [address], [place], [address], [place] - [facility], 09/12/2021 09:23:11 06/14/20 20 Colposcopy completed Cora Hendrickson MD [address], [place], [address], [place] [facility], 06/14/2020 09:36:36 11/27/19 20 Colposcopy completed Janet Madden in [facility], 12/09/2020 08:15:15 04/18/20 16 Other completed Janet Madden in [facility], 11/07/2016 13:03:57 11/25/19 16 Colposcopy completed Cora Hendrickson MD [address], [place], [address], [place] [facility], 11/25/2015 11:04:38 12/05/19 15 Cholecystectomy completed Janet Madden in [facility], 01/07/2016 08:52:33 Tonsillectomy completed Josette Madden in [facility], 10/14/2015 13:29:10 Other completed Josette Madden in [facility], 10/14/2015 13:29:10 Imaging Results None recorded. Procedure [...] Updated DateTime 5 160.02 cm 39 kg/m2 98639.3 2 g 97.2 [degF] 89 /min 129 mm[Hg] 75 mm[Hg] Janet Giron [place] [facility], 5 08:08:21 Social History Question Answer Notes LastModified by Organization Details LastModified Time Tobacco Smoking Status Former Smoker Not Available [facility] 06/08/2020 03:19:37 What Is Your Level Of Alcohol Consumption? None Very Rare. Information not available 06/07/2021 What Is Your Level Of Caffeine Consumption? None Rare Information not available 03/02/2022 In The 14 Days Before Symptom Onset, Have You Had Close Contact With A [facility] COVID-[facility] While That Case Was Ill? No [...] Type Of Diet Are You Following? REGULAR [id number] Information not available 06/08/2020 Which Illicit Or Recreational Drugs Have You Used? Marijuana Occassionally Information not available 09/12/2021 Do You Reside In Or Have You Traveled To An Area Where Ebola Virus Transmission Is Active? No [id number] Information not available 06/08/2020 Do You Or Have You Ever Used E-cigarettes Or Vape? Never Used Electronic Cigarettes [id number] Information not available 06/08/2020 Education 12 Information not available 11/07/2016 What Is The Highest Grade Or Level Of School You Have Completed Or The Highest Degree You Have Received? [id number] Information not available 06/07/2021 Who Is Your [...] available 06/07/2021 Are You Sexually Active? Yes [id number] Information not available 06/08/2020 At What Age Did You Start Smoking Tobacco? 19 Information not available 09/12/2021 Do You Or Have You Ever Used Smokeless Tobacco? Never Used Smokeless Tobacco [id number] Information not available 06/08/2020 How Much Tobacco Do You Smoke? No [id number] Information not available 06/08/2020 General Stress Level Medium Information not available 11/07/2016 Do You Feel Stressed (tense, Restless, Nervous, Or Anxious, Or Unable To Sleep At Night)? [id number] Information not available 06/07/2021 Do You Use Any Illicit Or Recreational Drugs? Yes Information not available 09/12/2021 How Many Years Have You Smoked Tobacco? 1 [id number] Information not available 06/08/2020 Have You Recently [...] Time What is your exercise level? Occasional [id number] Information not available 06/08/2020 Mental Status None [...] available 2018 08:23:05 Medical History Condition Response High Blood Pressure N Autoimmune Condition N Depression N History of Ovarian Cancer N Anxiety Disorder Y Arthritis N Infertility N Kidney or Bladder Problems N Osteopenia N Asthma N Hepatitis N Anesthesia complications N Candidate for MyRisk panel N Lung Disease N Defects or Inherited Disease N BRCA testing in past N History of Cancer N Endometriosis N Thyroid Problems N GI Problems Y Anemia N History of Breast Cancer N JONNATHAN exposure N Psychiatric Illness N Diabetes N Headaches or Migraines Y Heart Disease N Hypertension N Osteoporosis N [...] Recorded Time Tdap 7 completed Janet Meczywor null, [place] - [facility], 11/07/2016 12:59:41 COVID-19, mRNA, LNP-S, PF, 30 mcg/0.3 mL dose 1 completed Janet Meczywor null, [place] - [facility], 08/16/2023 08:19:38 COVID-19, mRNA, LNP-S, PF, 30 mcg/0.3 mL dose 2 completed Janet Meczywor null, [place] [facility], 08/16/2023 08:19:37 IPV 1 completed Janet Meczywor null, [place] [facility], 08/16/2023 08:19:37 MMR 1 completed Janet Meczywor null, [place] [facility], 08/16/2023 08:19:37 MMR 7 completed Janet Meczywor null, [place] [facility], 08/16/2023 08:19:37 COVID-19, mRNA, LNP-S, PF, 30 mcg/0.3 mL dose 1 completed Janet Meczywor null, [place] [facility], 08/16/2023 08:19:38 Tdap 7 completed Janet Meczywor null, [place] [facility], 08/16/2023 08:19:38 varicella 0 completed Janet Meczywor [...] [facility], 08/16/2023 08:19:38 Novel [id number] 1 completed Janet Meczywor null, [place] - [...] [facility], 08/16/2023 08:19:38 meningococcal [id number] 11/15/201 2 completed Janet Meczywor null, [place] [facility], 08/16/2023 08:19:38 DTaP 1 completed Janet Meczywor null, [place] - [facility], 08/16/2023 08:19:38 DTaP 6 completed Janet Meczywor null, [place] [facility], 08/16/2023 08:19:38 DTaP 6 completed Janet Meczywor null, [place] [facility], 08/16/2023 08:19:38 DTaP 6 completed Janet Meczywor null, [place] [facility], 08/16/2023 08:19:38 DTaP 7 completed Janet Meczywor null[place] [facility], 08/16/2023 08:19:38 Influenza, split virus, quadrivalent, PF 9 completed Janet Meczywor null, [place] [facility], 08/16/2023 08:19:38 Past Encounters Encounter ID Performer Location Encounter Start Date Encounter Closed Date Diagnosis/Indication Diagnosis SNOMED-CT Code Diagnosis ICD10 Code Diagnosis Note [id number] MD CORA Wiseman MD [address] [address] 09/24/2024 07:59:27 09/24/2024 11:18:14 Specialized medical examination 62709745 Z01.419 Venereal d isease screening 792982234 Z11.3 Vulvitis 85190716 N76.2 B96.89 Health Concerns Section Related Observation LastModified by Organization Detai ls LastModified Time None Recorded Concern Status LastModified by Organization Details LastModified Time None Recorded Payers Encounter Date Sequence Insurance Name Policy Number Policy Palacio Covered Member ID Palacio Member ID Guarantor Name 09/24/2024 1 [facility] [id number] Sharee De Guzman [id number] Sharee De Guzman Notes Date Note Type Note Provider Name and Address Organization Details Recorded Time 09/24/2024 text/html She is here for annual, doing well. Same partner 4 years, they live together now. Condoms, but would be fine if she were to get . Has had an on and off vaginal fishy odor for a month, like she had when she had BV previously. Working at [employer] in [employer] now, is happy. Note from 2023: She is here for annual, doing well, does not desire control, would be fine if she were to get , declines PNV, explained that this is helpful but needs to be started prior to conception, and why, she still declines.Same partner fro nearly 3 years. Got a job at [employer] in the [place] [employer] office a year ago, is happy. Cora Hendrickson MD [address] [facility],[address], [place], [address], [place] [facility], 09/24/2024 08:42:05 OBGyn Episode No OBEpisode recorded.
== END 2024-10-08 16:28 ==
PROVIDERS: PCP Nurse Practitioner Family; Visit Provider Internal Medicine
DX: K58.0 Irritable bowel syndrome with diarrhea (principal)
CPT/HCPCS: 98012

== ENCOUNTER → 2024-10-08 14:27 | Outpatient (BNVA) | payer OTHER, SELFPAY | PROVIDERS: PCP Nurse Practitioner Family; Visit Provider Internal Medicine ==